=== PATIENT | male | born 1950 | race Caucasian/White ===

== ENCOUNTER 2020-04-03 08:39 | Outpatient (CLI) | payer MEDICARE, BC, SELFPAY ==
--- NOTE | 2020-04-03 09:18 | MR_ITS ---
WS: [id number] MRI LUMBAR SPINE NONCONTRAST HISTORY: LUMBAR RADICULOPATHY COMPARISON: None available. TECHNIQUE: Sagittal and axial multisequence imaging is submitted. Extensive prior cervical fusion hardware. Mild straightening of the normal thoracic kyphosis. No cord encroachment. Mild central canal stenosis at T11-12 due to disc osteophyte disease and facet arthrit is. Moderate straightening of the normal lumbar lordosis. Posterior alignment is normal. Mild to moderate disc space narrowing and desiccation throughout the lumbar spine with osteophytes at all levels. No acute fracture. There is a small amount of reactive edema in the endplates of T11, T12, L2 and L3. Conus terminates normally at T12-L1 level. L1-L2: Mild facet disease and disc disease. No stenosis. L2-L3: Moderate annular disc bulging and osteophytic ridging with mild facet disease. Mild encroachme nt upon the ventral thecal sac. There is very mild central and subarticular recess narrowing. Shallow central disc protrusion with annular fissure. L3-L4: Diffuse annular disc bulging and osteophytic ridging. Mild facet joint arthritis. Mild ligamen rachel flavum hypertrophy. Mild encroachment and narrowing of the central canal with moderate subarticul ar recess stenosis and mild bilateral foraminal stenosis. L4-L5: Diffuse annular disc bulging and osteophytic ridging. Moderate to severe facet joint arthritis bilaterally. Mild ligamentum flavum hypertrophy. Nerve roots are becoming slightly clumped within th e thecal sac. Disc osteophyte disease causing mild bilateral subarticular recess stenosis and foramin al stenosis. L5-S1: Mild annular disc bulging with a moderate RIGHT subarticular recess disc osteophyte complex wi th extension into the RIGHT foramen. Mild contact on the RIGHT S1 nerve root and L5 nerve root. Moder ate subarticular recess encroachment on the RIGHT and mild RIGHT foraminal stenosis. Increased retroperitoneal fat deposition. MR/MR lumbar spine wo con* 85029 IMPRESSION: 1. Multilevel mild to moderate disc disease and osteophytosis throughout the l umbar spine. 2. Moderate RIGHT subarticular recess and mild RIGHT foraminal stenosis at L5- S1 due to disc osteophyte disease. Disc protrusion contacts the RIGHT S1 nerve root in the subarticular recess. 3. Mild central and subarticular recess stenosis at L2-3. 4. Mild central canal stenosis with moderate subarticular recess stenosis at L 3-4. Mild bilateral foraminal and subarticular recess stenosis at L4-5.
== END 2020-04-03 08:40 | disposition home or self-care (01) ==
LOC: RADWPI 08:42
PROVIDERS: Family Provider Physician Assistant; PCP Physician Assistant; Visit Provider Physician Assistant
DX: M54.16 Radiculopathy, lumbar region (principal); M51.36 Other intervertebral disc degeneration, lumbar region; M48.07 Spinal stenosis, lumbosacral region
CPT/HCPCS: 72148

== ENCOUNTER → 2020-09-18 15:50 | Outpatient (BNVA) | payer MEDICARE, BC, SELFPAY | PROVIDERS: Family Provider Physician Assistant; PCP Physician Assistant; Visit Provider Surgery | DX: Z11.59 Encounter for screening for other viral diseases (principal); K64.9 Unspecified hemorrhoids | CPT/HCPCS: 87635 ==

== ENCOUNTER 2020-09-23 05:52 | Day surgery (SDC) | payer MEDICARE, BC, SELFPAY ==
[2020-09-22 13:44] VITALS: BMI 28.2
[2020-09-23] VITALS (8 sets, daily range): BP systolic 142–176; BP diastolic 76–112; PULSE 94–109; RESP 16–18; TEMP 36.3–37; O2SAT 92–98
--- NOTE | 2020-09-23 06:55 | ANES.PREANE2 ---
Pre-Anesthetic Assessment Pre-Anesthetic Assessment: Height/Weight: Height 1.88 m Weight 99.79 kg Preop Diagnosis: Hemorrhoids Proposed Procedure: Operation Date: 09/23/20 07:00 Proposed Procedures p open Hemorroidectomy 58063 K64.9(Not Applicable) - Logan Jones MD Was Beta Rhett taken within 24 hours: N/A Last intake: Intake Last Liquid Date 09/23/20 Last Liquid Time 05:00 Last Solid Date 09/22/20 Last Solid Time 20:00 Social: Social History: Alcohol and Tobacco Exam: Pre-Anes Outpt Exam: alert, oriented x 3, clear to auscultation bilaterally and regular rate & rhythm Airway: Submandibular: WNL Cervical ROM: WNL MP: 2 Dentition: Partials History/ROS: No significant complaints Pulmonary: Pulmonary: COPD CV/HEM: CV/HEM: None reported : : None reported Hepatic: Hepatic: None reported GI: GI: None reported Metabolic: Metabolic: None reported Musc/skel: Musc/skel: None reported Neuropsych: Neuropsych: None reported Anesthetic Plan: ASA status: 3 Anesthesia: General PFSH Anesthesia PFSH: Medical History (Updated 09/15/20 @ 16:20 by Logan Jones MD) BPH (benign prostatic hyperplasia) Depression Erectile dysfunction GERD (gastroesophageal reflux disease) Hemorrhoids Surgical History History of colonoscopy (~2015) History of fusion of cervical spine c3-c7 History of laparoscopic cholecystectomy History of repair of right rotator cuff Family History Denies family history of Anesthesia complication Bleeding disorder Social History Smoking and tobacco status: current every day smoker Second hand smoke exposure: Yes Alcohol intake: current Data Anesthesia Cardiac Studies: No Data to Display
--- NOTE | 2020-09-23 06:58 | W.PM.OPSUD ---
Surgery/Procedure H&P Update DATE OF PROCEDURE: September 23, 2020 DATE H&P PERFORMED: 09/15/20 H&P UPDATE INFORMATION: I have reviewed H&P completed within last 30 days, I have examined patient prior to procedure and No changes to prior documentation PREOP DIAGNOSIS: Hemorrhoids PLANNED PROCEDURE: Operation Date: 09/23/20 07:00 Proposed Procedures p open Hemorroidectomy 07400 K64.9(Not Applicable) - Logan Jones MD
[2020-09-23] MEDS: sodium chloride 0.9% 1,000 ML 30 ML IV (07:05)
--- NOTE | 2020-09-23 08:08 | PM.OP ---
Operative Report Date of procedure: September 23, 2020 Pre-op Diagnosis: Hemorrhoids Post-op diagnosis: same Post-op Diagnosis: Grade 4 hemorrhoid at 3:00 and 7 o'clock position Grade 2 hemorrhoid at 11 o'clock position Procedure Done: Hemorrhoidectomy x2 Banding of hemorrhoids x1 Specimens removed/disposition: Hemorrhoidal tissue Surgeon: Logan Jones Anesthesia: General Condition: stable Disposition: PACU Procedure: The patient was taken to the operating room, intubated under general anesthesia and placed in the jackknife prone position under general anesthesia after IV antibiotic had been administered. The perianal area was prepped and draped in a sterile manner. Examination under anesthesia revealed grade 4 internal hemorrhoids in the right lateral and left lateral location. There was grade 2 hemorrhoids noted in the right anterior location. The hemorrhoidal tissue on the left lateral location was grasped with Allis clamps, and using LigaSure the hemorrhoidal tissue was excised staying superficial to the sphincter muscle up to a point superior to the dentate line. The hemorrhoidal tissue on the right lateral location was grasped with Allis clamps, and using LigaSure the hemorrhoidal tissue was excised staying superficial to the sphincter muscle up to a point superior to the dentate line. There was no bleeding noted. Rubber band was applied to the grade 2 hemorrhoids in the right anterior location about the dentate line using a band applicator. The excised specimens were sent to pathology. 10 cc of saline mixed with 10 cc point Exparel mixed with 10 cc of 0.5% Marcaine was infiltrated for a perianal block. A Vaseline gauze was placed in the anal canal and the patient was transferred to recovery room in stable condition.
[2020-09-23] MEDS: HYDROcodone-acetaminophen 5-325 mg Tablet 1 TAB PO (08:35)
--- NOTE | 2020-09-23 08:43 | ANE.PACU2 ---
Inpatient post-anesthesia follow up: Airway intact: Yes Vital signs: Temperature 97.8 F Pulse Rate 98 Respiratory Rate 16 Blood Pressure 157/92 Pulse Oximetry 93 Oxygen Delivery Me thod Room Air Oxygen Flow Rate 8 Fraction of Inspir ed Oxygen Hydration adequate: Yes Nausea and vomiting: No Pain level: 3 Mental status: Baseline
== END 2020-09-23 10:20 | disposition home or self-care (01) ==
PROVIDERS: PCP Physician Assistant; Visit Provider Surgery
PROC: (CPT 46260; principal; 2020-09-23 07:00)
DX: K64.8 Other hemorrhoids (principal); K64.4 Residual hemorrhoidal skin tags; J44.9 Chronic obstructive pulmonary disease, unspecified; N40.0 Benign prostatic hyperplasia without lower urinary tract symptoms; F32.9 Major depressive disorder, single episode, unspecified; K21.9 Gastro-esophageal reflux disease without esophagitis; F17.210 Nicotine dependence, cigarettes, uncomplicated
CPT/HCPCS: 46260; 12345; 88304; C9290; J0690; J1100; J2704; J3010; J3490; J7030

== ENCOUNTER 2020-11-09 11:46 | Outpatient (CLI) | payer MEDICARE, BC, SELFPAY | END 2020-11-09 11:47 | disposition home or self-care (01) | LOC: LAB 11:52 | PROVIDERS: PCP Physician Assistant; Visit Provider Surgery | DX: R19.7 Diarrhea, unspecified (principal) | CPT/HCPCS: 83630; 87046; 87177; 87209; 87493 ==

== ENCOUNTER 2021-02-18 16:04 | Emergency (ER) | payer MEDICARE, BC, SELFPAY ==
[2021-02-18 16:32] VITALS: BP 123/73; PULSE 75; RESP 18; TEMP 36.8; O2SAT 96; BMI 29.5
--- NOTE | 2021-02-18 16:56 | PC.NURSE ---
patient c/o RUQ pain, worse when taking deep breath or touching.
--- NOTE | 2021-02-18 16:58 | CTR_ITS ---
PROCEDURE INFORMATION: Exam: CT Chest With Contrast; Diagnostic Exam date and time: 02/18/2021 6:32 PM Age: 70 years old Clinical indication: Injury or trauma; Fall; Upper; Blunt trauma (contusions or hematomas); Prior surgery; Surgery type: Neck, gb; Additional info: Fell on table corner to left upper belly/lower ribs TECHNIQUE: Imaging protocol: Diagnostic computed tomography of the chest with contrast. Radiation optimization: All CT scans at this facility use at least one of these dose optimization techniques: automated exposure control; mA and/or kV adjustment per patient size (includes targeted exams where dose is matched to clinical indication); or iterative reconstruction. Contrast material: OMNI 300; Contrast volume: 95 ml; Contrast route: INTRAVENOUS (IV); COMPARISON: No relevant prior studies available. RADIATION DOSE METRICS: Total DLP (mGy-cm): 1765.91 FINDINGS: Lungs: A small amount septal thickening and early peripheral cystic change. Few 1-3 mm nodules. No focal consolidation. Pleural spaces: Unremarkable. No pneumothorax. No pleural effusion. Heart: Unremarkable. No cardiomegaly. No pericardial effusion. Aorta: Unremarkable. No aortic aneurysm. Lymph nodes: Unremarkable. No enlarged lymph nodes. Bones/joints: Unremarkable. No acute fracture. Soft tissues: Unremarkable. IMPRESSION: 1. No acute abnormalities. 2. Mild lung fibrosis. PROCEDURE INFORMATION: Exam: CT Abdomen And Pelvis With Contrast Exam date and time: 02/18/2021 6:32 PM Age: 70 years old Clinical indication: Injury or trauma; Fall; Upper; Blunt trauma (contusions or hematomas); Prior surgery; Surgery type: Neck, gb; Additional info: Fell on table corner to left upper belly/lower ribs TECHNIQUE: Imaging protocol: Computed tomography of the abdomen and pelvis with contrast. Radiation optimization: All CT scans at this facility use at least one of these dose optimization techniques: automated exposure control; mA and/or kV adjustment per patient size (includes targeted exams where dose is matched to clinical indication); or iterative reconstruction. Contrast material: OMNI 300; Contrast volume: 95 ml; Contrast route: INTRAVENOUS (IV); COMPARISON: No relevant prior studies available. RADIATION DOSE METRICS: Total DLP (mGy-cm): 1765.91 FINDINGS: Lungs: The visualized lung bases are clear. Liver: Normal size and density. No focal mass. Gallbladder and bile ducts: Status post cholecystectomy. Mild biliary dilatation is likely reservoir effect. Pancreas: No evidence of mass. No ductal dilation. Spleen: No splenomegaly or mass. Adrenal glands: Normal. Kidneys and ureters: Bilateral subcentimeter renal cyst not require further imaging. No stones or hydronephrosis. Mild bilateral perinephric edema is likely age related. Normal appearing ureters. Stomach and bowel: No evidence of obstruction. No focal bowel wall thickening or mass. No significant diverticula. Appendix: No evidence of appendicitis. Intraperitoneal space: No free air. No free fluid or evidence of abscess. Vasculature: No concerning abnormalities. Scattered vascular calcifications. Lymph nodes: No lymphadenopathy. Urinary bladder: Normal CT appearance. Reproductive: Normal CT appearance for age. Bones/joints: No acute abnormality. Degenerative changes of the spine and hips. The bones appear mildly demineralized. Soft tissues: Within normal limits. CT/CT chest abd pel w con* IMPRESSION: No acute abnormalities. COMMENTS: Consistent with the [employer]'s Incidental Findings Committee white paper (J Am To Radiol 2018): Any incidental renal lesion less than 1 cm or classified as too small to characterize, or any incidental cystic renal lesion characterized as simple-appearing, is likely benign. No follow-up imaging is recommended for these lesions per consensus recommendations based on imaging criteria. Radiation Dose CTDIVOL = (mGy): DLP = 1765.91~1765.91 (mGy-cm)
--- NOTE | 2021-02-18 17:04 | ECG_ITS ---
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 Measurements Intervals [place] Rate: 68 P: 50 DE: 157 QRS: -26 QRSD: 109 T: 34 QT: 421 QTc: 448 Interpretive Statements SINUS RHYTHM BORDERLINE LEFT AXIS DEVIATION [QRS AXIS < -20] No previous ECG available for comparison Electronically Signed On 02-18-2021 21:02:16 CDT by Shelia Melendez M.D. [id number]
--- NOTE | 2021-02-18 17:09 | W.ED.FALL ---
HPI - Fall General: Chief Complaint: Fall Stated Complaint: Post Fall/ ABD pain Time Seen by Provider: 02/18/21 16:52 History of Present Illness: HPI Narrative: The patient is a 70-year-old male previously well who comes to the ER 4 days after falling. He says he was wearing sandals and caught a tuft of a rug causing him to fall. He fell on a coffee table where the corner of it hit him squarely in the right upper quadrant and he has had pain since. He says the pain is getting no better so he comes to the ER. He says it hurts when he breathes or palpates the area and worries that he could have injured his spleen, ribs, or what ever else is in that area but because it is all tender. He has taken NSAIDs for pain with limited relief. complaint: fall Onset (ago): day(s) (4) Fall from: standing Fall witnessed: no Place fall occurred: home Loss of consciousness: None Prolonged down time: no Symptoms prior to fall: none Context: tripped/slipped Severity: moderate Associated symptoms-after fall: Reports abdominal pain; Denies confusion, difficulty walking, headache(s) or neck pain Review of Systems General: Reports: 10 or more systems reviewed and unremarkable except in HPI and below Const: Denies: fatigue Eyes: Denies: change in vision, blurry vision or eye redness ENMT: Denies: throat pain, swelling of lips/tongue, ear or mastoid pain or nasal congestion Resp: Denies: dyspnea, productive cough or non-productive cough GI: Reports: abdominal pain; Denies: nausea or vomiting : Denies: flank pain, urinary frequency or urinary urgency Musc: Denies: neck pain, back pain, extremity pain, joint pain, joint redness, limited range of motion or muscle weakness Skin/Breast: Denies: rash, pruritus, erythema, skin pain or skin tenderness Neuro: Denies: headache(s), numbness in extremities, weakness in extremities, sensory changes, difficulty walking, dizziness, confusion or Slurred speech present Psych: Denies: anxiety or depression Endo: Denies: polyuria All/Imm: Denies: urticaria, throat swelling or tongue swelling PFSH ED PFSH: Medical History BPH (benign prostatic hyperplasia) Depression Erectile dysfunction GERD (gastroesophageal reflux disease) Hemorrhoids Surgical History History of colonoscopy (~2015) History of fusion of cervical spine c3-c7 History of laparoscopic cholecystectomy History of repair of right rotator cuff S/P hemorrhoidectomy (09/23/20) Family History Denies family history of Anesthesia complication Bleeding disorder Social History Smoking and tobacco status: current every day smoker Second hand smoke exposure: Yes Alcohol intake: current Physical Exam Const: COMMON NORMALS: no acute distress, average body habitus, patient oriented x3, no limitations, healthy appearing, alert and well nourished GENERAL APPEARANCE: cooperative, comfortable, well kempt and well developed ORIENTATION/CONSCIOUSNESS: Yes awake, Yes oriented to person, Yes oriented to place and Yes oriented to time HENMT: COMMON NORMALS: normocephalic, external ears normal and Normal external nose present HEAD & SCALP: normal to inspection and normocephalic NOSE: Normal external nose present EXTERNAL EAR: Yes external ears normal MOUTH: Normal oral and palatal mucosa present THROAT: posterior oropharynx normal Eye: COMMON NORMALS: Equal, round and reactive pupils present and EOMs intact bilaterally GENERAL EYE: appearance normal, both eyes and all related structures PUPIL: Yes Equal, round and reactive pupils present Neck/C-Spine: COMMON NORMALS: full ROM, no lymphadenopathy, no meningeal signs and no JVD GENERAL: Yes normal visual inspection Lymph: LYMPHATIC: no lymphadenopathy noted Chest: COMMONS NORMALS: normal inspection of the chest and normal palpation of entire chest wall Resp: COMMON NORMALS: normal respiratory effort, No retractions, No use of accessory muscles, clear to auscultation bilaterally and percussion normal EFFORT & INSPECTION: Yes able to speak in complete sentences AUSCULTATION: clear to auscultation bilaterally PERCUSSION: percussion normal Cardio: COMMON NORMALS: no JVD, regular rate, regular rhythm, S1 normal heart sound present, S2 normal heart sound present and Peripheral pulses 2+ throughout RATE: regular rate RHYTHM: regular rhythm HEART SOUNDS: S1 normal heart sound present and S2 normal heart sound present PERIPHERAL PULSES: Peripheral pulses 2+ throughout GI: COMMON NORMALS: Normal to inspection, nondistended, normoactive bowel sounds present, Soft to palpation and no masses INSPECTION: Yes normal to inspection PALPATION: Yes Soft to palpation GI image (male): 1. Moderate tenderness to the area drawn. No bruising. Soft. No rebound tenderness. : COMMON NORMALS: Yes no CVA tenderness BLADDER/KIDNEY EXAM: Yes no CVA tenderness Back/Pelvis: COMMON NORMALS: no CVA tenderness, thoracic and lumbar spine normal to inspection, no thoracic nor lumbar tenderness and thoraco-lumbar ROM normal Extremity: COMMON NORMALS: normal to inspection, full ROM, capillary refill normal, no joint enlargement and no pedal edema GENERAL: Yes normal exam except as noted Neuro: COMMON NORMALS: patient oriented x3, CN's II-XII intact bilaterally, moves all extremities, no focal motor deficits, no sensory deficits noted and gait normal SENSORIUM/ORIENTATION: Yes alert, Yes oriented to person, Yes oriented to place and Yes oriented to time MENINGEAL SIGNS: Yes no meningeal signs Psych: COMMON NORMALS: mental status grossly normal, Normal thought process present, cooperative, normal affect and speech normal APPEARANCE: Yes well kempt ATTITUDE: Yes calm SPEECH: Yes normal speech THOUGHT PROCESS: Normal thought process present Skin: COMMON NORMALS: no rashes or lesions noted GENERAL SKIN EXAM: no rashes or lesions noted Course Vital Signs: Vital signs: Vital Signs Temperature 98.2 F 02/18/21 16:32 Pulse Rate 92 02/18/21 19:18 Respiratory Rate 22 H 02/18/21 19:18 Blood Pressure 127/69 02/18/21 19:18 Pulse Oximetry 98 02/18/21 19:18 MDM - Fall MDM Narrative: Medical decision making narrative: The patient comes in 4 days after a fall. CT shows no significant internal organ damage. Liver enzymes are mildly elevated and bilirubin mildly elevated as well. Recommended he get a CMP again in a week from his primary care physician after he feels better. ER with worsening symptoms at any time. Discharged with Flexeril and recommend he be careful to avoid future falls with that medication. Lab Data: Labs: Lab Results 02/18/21 02/18/21 02/18/21 Range/Units 17:35 17:35 17:35 WBC 8.0 (4.0-10.0) 10^3/ uL RBC 4.63 (4.1-5.3) 10^6/u L Hgb 14.9 (11.7-16.6) g/dL Hct 43.9 (42.0-52.0) % MCV 94.8 H (80-94) fL MCH 32.2 (28.0-34.0) pg MCHC 33.9 (30.0-36.0) g/dL RDW 12.9 (12.1-15.1) % Plt Count 162 (130-400) 10^3/c mm MPV 9.9 (7.4-10.4) fL Neut % (Auto) 67.3 % Lymph % (Auto) 23.3 % [place] % (Auto) 7.9 % Eos % (Auto) 0.8 % Baso % (Auto) 0.3 % Neut # (Auto) 5.36 (1.8-7.7) 10^3/u L Lymph # (Auto) 1.9 (0.8-4.8) 10^3/u L [place] # (Auto) 0.6 (0.2-0.9) 10^3/u L Eos # (Auto) 0.1 (0.0-0.8) 10^3/u L Baso # (Auto) 0.0 (0.0-0.1) 10^3/u L Nucleated RBC % (a uto) 0 % Nucleated RBCs # 0.0 /100WBC Sodium 135 L (136-145) mmol/L Potassium 3.9 (3.5-5.1) mmol/L Chloride 97 L (98-107) mmol/L Carbon Dioxide 30 H (22-29) mmol/L Anion Gap 11.9 (5-19) BUN 10 (8-23) mg/dL Creatinine 0.7 (0.7-1.2) mg/dL GFR Calculation 111.5 (90-130) mL/min Glucose 85 (65-115) mg/dL Calculated Osmolal ity 278 L (285-295) mOsm/k g Calcium 8.7 (8.5-10.5) mg/dL Total Bilirubin 1.9 H (0.15-1.2) mg/dL AST 279 H (0-40) U/L ALT 198 H (0-41) U/L Alkaline Phosphata se 115 (40-130) IU/L Troponin T Baselin e 9 (0-15) ng/L Total Protein 6.2 L (6.6-8.7) g/dL Albumin 3.3 L (3.5-5.2) g/dL Globulin 2.9 (1.3-4.6) g/dL Lipase 14 (13-60) U/L Discharge Plan Discharge Patient Disposition: Home Clinical Impression: Contusion Condition: Stable Prescriptions: New cyclobenzaprine 5 mg tablet 5 mg PO TID PRN (Reason: muscle spasm) Qty: 15 RF: 0 No Action esomeprazole magnesium 40 mg capsule,delayed release(DR/EC) 40 mg PO DAILY RF: 0 Metamucil (sugar) Powder 1 tbsp PO BID Qty: 1254 RF: 2 atorvastatin 40 mg tablet 40 mg PO DAILY RF: 0 doxycycline hyclate 100 mg capsule 100 mg PO DAILY RF: 0 sildenafil 100 mg tablet 100 mg PO DAILY PRN (Reason: Sexual Activity) RF: 0 trazodone 100 mg tablet 100 mg PO BEDTIME RF: 0 paroxetine HCl 30 mg tablet 30 mg PO DAILY RF: 0 buspirone 15 mg tablet 15 mg PO BID RF: 0 acamprosate 333 mg tablet,delayed release (DR/EC) 666 mg PO TID RF: 0 lactulose 10 gram/15 mL solution 15 ml PO BID PRN (Reason: Constipation) RF: 0 Discharge Orders: Discharge ED (Routine); Ordered 02/18/21 Ordered By: Gama Arias Referrals: Belgica Beyer DO [Primary Care Provider] - Patient Instructions: Contusion, Opioid Safety Activity Restrictions/Additional Instructions: You have fallen and likely have a deep bruise called a contusion. There are no broken bones and your major organs do not have any significant injuries seen on CT. Of note your liver enzymes are slightly elevated which could be an indication that there was a mild injury there however it is unclear. It is recommended that you have your liver enzymes checked again when you feel better. I am sending you home with a muscle relaxer to help with your aches and it will also help you sleep at night. Please be aware that while taking this medication you may become drowsy and it increases chance of falling so try to avoid falling. Do not mix it with drugs, alcohol, nor operate machinery while you take the medication either. Coding Level of Care Code ED Assistant Farm Operations Manager for g Fwd Exam Comprehensive
[2021-02-18 17:25] VITALS: BP 126/63; PULSE 68; RESP 18; O2SAT 96
[2021-02-18 17:57] LABS: Basophils % 0.3 %; Eosinophils # 0.1 10^3/uL (0.0-0.8); Eosinophils % 0.8 %; Hematocrit 43.9 % (42.0-52.0); Hemoglobin 14.9 g/dL (11.7-16.6); Lymphocytes # 1.9 10^3/uL (0.8-4.8); Lymphocytes % 23.3 %; Mean Corpuscular HGB Conc 33.9 g/dL (30.0-36.0); Mean Corpuscular Hemoglobin 32.2 pg (28.0-34.0); Mean Corpuscular Volume 94.8 fL (80-94); Mean Platelet Volume 9.9 fL (7.4-10.4); Monocytes # 0.6 10^3/uL (0.2-0.9); Monocytes % 7.9 %; Neutrophils # 5.36 10^3/uL (1.8-7.7); Neutrophils % 67.3 %; Nucleated Red Blood Cells % 0 %; Platelet Count 162 10^3/cmm (130-400); Red Blood Count 4.63 10^6/uL (4.1-5.3); Red Cell Distribution Width 12.9 % (12.1-15.1)
[2021-02-18 18:15] LABS: Alanine Aminotransferase 198 U/L (0-41); Albumin Level 3.3 g/dL (3.5-5.2); Alkaline Phosphatase 115 IU/L (40-130); Anion Gap 11.9 (5-19); Aspartate Amino Transferase 279 U/L (0-40); Blood Urea Nitrogen 10 mg/dL (8-23); Calcium 8.7 mg/dL (8.5-10.5); Carbon Dioxide 30 mmol/L (22-29); Chloride 97 mmol/L (98-107); Globulin 2.9 g/dL (1.3-4.6); Glomerular Filtration Rate 111.5 mL/min (90-130); Glucose 85 mg/dL (65-115); Lipase 14 U/L (13-60); Osmolality Calculated 278 mOsm/kg (285-295); Potassium 3.9 mmol/L (3.5-5.1); Sodium 135 mmol/L (136-145); Total Bilirubin 1.9 mg/dL (0.15-1.2); Total Protein 6.2 g/dL (6.6-8.7)
[2021-02-18 18:16] LABS: Troponin(5th) Baseline 9 ng/L (0-15)
[2021-02-18] MEDS: iohexol 300 mg/mL 100 mL Btl IV (18:46)
[2021-02-18 19:18] VITALS: BP 127/69; PULSE 92; RESP 22; O2SAT 98
--- NOTE | 2021-02-18 19:53 | PC.NURSE ---
morphine not given due to pt driving home. flexeril rx for home adm
--- NOTE | 2021-02-18 20:01 | PC.NURSE ---
original order for flexeril 5mg PO for home adm cancelled due to only 10mg available to dispense per Jared @pharmacy. Dr notified, order changed to flexeril 10mg PO for home adm
[2021-02-18 21:03] VITALS: BP 127/69; O2SAT 97
== END 2021-02-18 20:20 | disposition home or self-care (01) ==
PROVIDERS: Emergency Provider Family Medicine; PCP Internal Medicine
DX: S30.1XXA Contusion of abdominal wall, initial encounter (principal); F17.210 Nicotine dependence, cigarettes, uncomplicated; W01.0XXA Fall on same level from slipping, tripping and stumbling without subsequent striking against object, initial encounter
CPT/HCPCS: 71260; 74177; 80053; 83690; 84484; 85025; 93005; 99283; Q9967

== ENCOUNTER 2021-03-05 11:24 | Outpatient (CLI) | payer MEDICARE, BC, SELFPAY ==
--- NOTE | 2021-03-05 11:38 | XR_ITS ---
WS: [id number] Chest 2 views, 03/05/2021 Clinical Data: LEFT SIDED RIB PAIN Comparison: None. Findings: No nodules, masses or effusions are seen. The heart is normal. The pulmonary vascularity is not increased. No pneumothorax is seen. The aortic arch and descending aorta show minimal calcifica tion and tortuosity. There is patchy opacities in the periphery of the right lower lobe, right upper lobe and left lower lobe which could represent acute or chronic change. These opacities could be mini mal acute pneumonia or chronic interstitial pneumonia. The patient has had an anterior cervical disc fusion. XR/XR chest 2V* 77936 Impression: 1. Atherosclerosis. 2. Minimal peripheral pulmonary opacities in the right upper lobe, right lower lobe and left lower lobe which could represent acute or chronic pneumonia.
--- NOTE | 2021-03-05 11:38 | XR_ITS ---
WS: [id number] Left rib detail, 2 views, 03/05/2021 Clinical Data: LEFT SIDED RIB PAIN Comparison: None. Findings: There is a fracture of the lateral aspect of the left seventh rib. No left pneumothorax or subcutaneo us emphysema is seen. The peripheral interstitial lung opacities are noted, these could represent chr onic interstitial pneumonia or less likely acute pneumonia. XR/XR ribs LT 2V* [id number] Impression: Left seventh rib fracture.
== END 2021-03-05 11:25 | disposition home or self-care (01) ==
LOC: RAD 11:30
PROVIDERS: PCP Internal Medicine; Visit Provider Family Medicine
DX: S22.32XA Fracture of one rib, left side, initial encounter for closed fracture (principal); X58.XXXA Exposure to other specified factors, initial encounter; I70.90 Unspecified atherosclerosis
CPT/HCPCS: 71046; 71100

== ENCOUNTER 2021-06-18 13:51 | Emergency (ER) | payer MEDICARE, BC, SELFPAY ==
--- NOTE | 2021-06-18 14:11 | ECG_ITS ---
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 Measurements Intervals [place] Rate: 79 P: 42 ND: 136 QRS: -34 QRSD: 110 T: 49 QT: 396 QTc: 456 Interpretive Statements SINUS RHYTHM MARKED LEFT AXIS DEVIATION [QRS AXIS < -30] Compared to ECG 02/18/2021 17:25:16 No significant changes Electronically Signed On 06-20-2021 12:20:40 CDT by Schuyler Johnson M.D. [id number]
[2021-06-18 14:12] VITALS: BP 124/74; PULSE 80; RESP 18; TEMP 37.2; O2SAT 95; BMI 27.6
== END 2021-06-18 20:08 | disposition left against medical advice (07) ==
PROVIDERS: PCP Family Medicine
DX: Z53.21 Procedure and treatment not carried out due to patient leaving prior to being seen by health care provider (principal)
CPT/HCPCS: 93005

== ENCOUNTER 2021-06-21 08:55 | Emergency (ER) | payer MEDICARE, BC, SELFPAY ==
--- NOTE | 2021-06-21 09:01 | XRR_ITS ---
PROCEDURE INFORMATION: Exam: XR Chest Exam date and time: 06/21/2021 9:01 AM Age: 70 years old Clinical indication: Pain; Angina pectoris; Additional info: Chest pain x 1 month TECHNIQUE: Imaging protocol: XR of the chest. Views: Frontal portable upright view of the chest. COMPARISON: CR XR chest 2V* [id number] 03/05/2021 11:50 AM FINDINGS: Lungs: Interval mild increase in bilateral interstitial prominence, notably the lateral left mid lung zone and right lung base. The pulmonary vasculature is stable. Pleural spaces: No pleural effusion. No pneumothorax. Heart/Mediastinum: Mediastinum: Stable. The heart is normal in size and contour. Mediastinum: Stable. Vasculature: Mild aortic arch atherosclerotic calcification without ectasia. Bones/joints: Lower cervical spinal anterior fixation hardware. Stable. Stable. XR/XR chest 1V portable [id number] IMPRESSION: Interval mild increase in bilateral interstitial prominence. Consider interstitial pulmonary edema and infectious interstitial pneumonitis.
[2021-06-21 09:02] VITALS: BP 130/78; PULSE 111; RESP 17; TEMP 37.4; O2SAT 95
[2021-06-21 09:46] VITALS: BP 139/87; PULSE 85; RESP 16; O2SAT 97
[2021-06-21 09:49] LABS: Basophils % 0.4 %; Eosinophils # 0.1 10^3/uL (0.0-0.8); Eosinophils % 1.5 %; Hematocrit 45.3 % (42.0-52.0); Hemoglobin 15.4 g/dL (11.7-16.6); Lymphocytes # 0.8 10^3/uL (0.8-4.8); Lymphocytes % 14.5 %; Mean Corpuscular Hemoglobin 34.9 pg (28.0-34.0); Mean Corpuscular Volume 102.7 fL (80-94); Mean Platelet Volume 9.3 fL (7.4-10.4); Monocytes # 0.5 10^3/uL (0.2-0.9); Monocytes % 8.8 %; Neutrophils % 74.4 %; Nucleated Red Blood Cells % 0 %; Platelet Count 172 10^3/cmm (130-400); Red Blood Count 4.41 10^6/uL (4.1-5.3); Red Cell Distribution Width 12.3 % (12.1-15.1); White Blood Count 5.2 10^3/uL (4.0-10.0)
--- NOTE | 2021-06-21 09:50 | W.ED.CHESTPA ---
HPI - Chest Pain General: Chief Complaint: Chest Pain Stated Complaint: CHEST PAIN Time Seen by Provider: 06/21/21 08:55 History of Present Illness: HPI narrative: 70-year-old male who presents to the emergency room with complaining of chest pain on the left side for the last month. He was here a few days ago and left because of volumes the weight was longer and he did not wish to wait to be seen. He denies any radiation of the pain is not particularly been associated with shortness of breath he does have his long history of smoking and still does smoke. He has not had any fever sweats chills or cough. He is not had any nausea diaphoresis associated with this he is not been more short of breath than usual. He is not had any vomiting myalgia or diarrhea. He has previously been vaccinated for Covid and he is not had a yet that he is aware of. Chest pain is oddly positional if he flexes his neck and is sitting up and then takes a deep breath he can recreate the pain with palpation on the left side of the sternum at the base. Otherwise it is not palpably reproducible or reproducible on inspiration when he is in a different position. He has no known history of coronary artery disease. MD complaint: chest pain and chest discomfort Onset (ago): month(s) (1) Timing of current episode: episodic Prior episodes: Yes Onset: during rest Pain location: left chest Pain radiation: none Severity: mild Quality: aching Relieving factors: rest and other (He reports mild relief if he dissolves aspirin water and drinks it) Exacerbating factors: inspiration and palpation Associated symptoms: Deny abdominal pain, diaphoresis, dyspnea, fever(s), leg edema, nausea, palpitations, sense of impending doom, syncope or vomiting Treatment prior to arrival: none Review of Systems Const: Denies: fever(s) or diaphoresis ENMT: Denies: throat pain, ear or mastoid pain, nasal discharge or nasal congestion Card: Denies: palpitations or syncope Resp: Denies: dyspnea GI: Denies: abdominal pain, nausea or vomiting : Denies: flank pain, dysuria, urinary frequency or urinary urgency Skin/Breast: Denies: rash or pruritus PFS ED PFSH: Medical History BPH (benign prostatic hyperplasia) Depression Erectile dysfunction GERD (gastroesophageal reflux disease) Hemorrhoids Surgical History History of colonoscopy (~2015) History of fusion of cervical spine c3-c7 History of laparoscopic cholecystectomy History of repair of right rotator cuff S/P hemorrhoidectomy (09/23/20) Family History Denies family history of Anesthesia complication Bleeding disorder Social History Smoking and tobacco status: current every day smoker Second hand smoke exposure: Yes Alcohol intake: current Physical Exam Const: COMMON NORMALS: no acute distress GENERAL APPEARANCE: cooperative and comfortable ORIENTATION/CONSCIOUSNESS: Yes awake, Yes oriented to person, Yes oriented to place and Yes oriented to time HENMT: COMMON NORMALS: normocephalic, atraumatic, hearing grossly normal bilaterally, external ears normal, EAC's normal, TM's normal bilaterally, Normal nasal mucous membranes and turbinates present, moist oral mucous membranes and oropharynx normal HEAD & SCALP: normocephalic and atraumatic NOSE: Normal nasal mucous membranes and turbinates present EXTERNAL EAR: Yes external ears normal EXTERNAL AUDITORY CANAL: EAC's normal TYMPANIC MEMBRANE: TM's normal bilaterally Eye: COMMON NORMALS: Equal, round and reactive pupils present, EOMs intact bilaterally, conjunctivae normal and no scleral icterus CONJUNCTIVA: Yes conjunctivae normal PUPIL: Yes Equal, round and reactive pupils present Neck/C-Spine: COMMON NORMALS: full ROM, no lymphadenopathy, supple and no JVD Lymph: LYMPHATIC: no lymphadenopathy noted and no lymphedema noted Resp: COMMON NORMALS: normal respiratory effort, No retractions, No use of accessory muscles and clear to auscultation bilaterally AUSCULTATION: clear to auscultation bilaterally Cardio: COMMON NORMALS: no JVD, regular rate, regular rhythm and No murmurs present (Cardio) RATE: regular rate RHYTHM: regular rhythm GI: COMMON NORMALS: Soft to palpation and No hepatosplenomegaly present AUSCULTATION: Yes normoactive bowel sounds PALPATION: Yes Soft to palpation, No Tenderness to palpation present (GI), No Guarding due to palpation present (GI) and Yes No hepatosplenomegaly present Extremity: COMMON NORMALS: normal to inspection, capillary refill normal, no clubbing, cyanosis or edema, no calf tenderness and no pedal edema Neuro: SENSORIUM/ORIENTATION: Yes oriented to person, Yes oriented to place and Yes oriented to time Skin: COMMON NORMALS: no rashes or lesions noted GENERAL SKIN EXAM: no rashes or lesions noted Course Vital Signs: Vital signs: Vital Signs Temperature 99.5 F 06/21/21 10:22 Pulse Rate 90 06/21/21 16:05 Respiratory Rate 18 06/21/21 16:05 Blood Pressure 130/74 06/21/21 16:05 Pulse Oximetry 93 06/21/21 16:05 MDM - Chest Pain MDM Narrative: Medical decision making narrative: Reviewed labs imaging finding as well as EKGs on the chart. Patient would prefer to go home at this point. It was a little bit of questionable findings on the lower portion of the chest x-ray was swabbed him for Covid rapid is negative.Discharge home from follow-up with his primary care direct vision worsening problems return to the emergency room continue his other medications for now. Especially the aspirin. Lab Data: Labs: Lab Results 06/21/21 06/21/21 06/21/21 Range/Units 09:40 09:40 09:40 WBC 5.2 (4.0-10.0) 10^3/ uL RBC 4.41 (4.1-5.3) 10^6/u L Hgb 15.4 (11.7-16.6) g/dL Hct 45.3 (42.0-52.0) % MCV 102.7 H (80-94) fL MCH 34.9 H (28.0-34.0) pg MCHC 34.0 (30.0-36.0) g/dL RDW 12.3 (12.1-15.1) % Plt Count 172 (130-400) 10^3/c mm MPV 9.3 (7.4-10.4) fL Neut % (Auto) 74.4 % Lymph % (Auto) 14.5 % Stewart % (Auto) 8.8 % Eos % (Auto) 1.5 % Baso % (Auto) 0.4 % Neut # (Auto) 3.90 (1.8-7.7) 10^3/u L Lymph # (Auto) 0.8 (0.8-4.8) 10^3/u L Stewart # (Auto) 0.5 (0.2-0.9) 10^3/u L Eos # (Auto) 0.1 (0.0-0.8) 10^3/u L Baso # (Auto) 0.0 (0.0-0.1) 10^3/u L Nucleated RBC % (a uto) 0 % Nucleated RBCs # 0.0 /100WBC Sodium 138 (136-145) mmol/L Potassium 4.1 (3.5-5.1) mmol/L Chloride 100 (98-107) mmol/L Carbon Dioxide 28 (22-29) mmol/L Anion Gap 14.1 (5-19) BUN 5 L (8-23) mg/dL Creatinine 0.5 L (0.7-1.2) mg/dL GFR Calculation 164.4 H (90-130) mL/min Glucose 86 (65-115) mg/dL Calculated Osmolal ity 283 L (285-295) mOsm/k g Calcium 8.5 (8.5-10.5) mg/dL Total Bilirubin 0.5 (0.15-1.2) mg/dL AST 32 (0-40) U/L ALT 17 (0-41) U/L Alkaline Phosphata se 101 (40-130) IU/L Troponin T Baselin e 7 (0-15) ng/L Troponin T 120 Min yohana (0-15) ng/L Delta Troponin T Total Protein 6.8 (6.6-8.7) g/dL Albumin 3.7 (3.5-5.2) g/dL Globulin 3.1 (1.3-4.6) g/dL Nasal/Oral COVID-1 9 PCR SARS-CoV-2 Ag (Rap id) (Negative) 06/21/21 06/21/21 06/21/21 Range/Units 11:20 11:20 13:56 WBC (4.0-10.0) 10^3/ uL RBC (4.1-5.3) 10^6/u L Hgb (11.7-16.6) g/dL Hct (42.0-52.0) % MCV (80-94) fL MCH (28.0-34.0) pg MCHC (30.0-36.0) g/dL RDW (12.1-15.1) % Plt Count (130-400) 10^3/c mm MPV (7.4-10.4) fL Neut % (Auto) % Lymph % (Auto) % Stewart % (Auto) % Eos % (Auto) % Baso % (Auto) % Neut # (Auto) (1.8-7.7) 10^3/u L Lymph # (Auto) (0.8-4.8) 10^3/u L Stewart # (Auto) (0.2-0.9) 10^3/u L Eos # (Auto) (0.0-0.8) 10^3/u L Baso # (Auto) (0.0-0.1) 10^3/u L Nucleated RBC % (a uto) % Nucleated RBCs # /100WBC Sodium (136-145) mmol/L Potassium (3.5-5.1) mmol/L Chloride (98-107) mmol/L Carbon Dioxide (22-29) mmol/L Anion Gap (5-19) BUN (8-23) mg/dL Creatinine (0.7-1.2) mg/dL GFR Calculation (90-130) mL/min Glucose (65-115) mg/dL Calculated Osmolal ity (285-295) mOsm/k g Calcium (8.5-10.5) mg/dL Total Bilirubin (0.15-1.2) mg/dL AST (0-40) U/L ALT (0-41) U/L Alkaline Phosphata se (40-130) IU/L Troponin T Baselin e (0-15) ng/L Troponin T 120 Min yohana 6.48 (0-15) ng/L Delta Troponin T TNP Total Protein (6.6-8.7) g/dL Albumin (3.5-5.2) g/dL Globulin (1.3-4.6) g/dL Nasal/Oral COVID-1 9 PCR Not detected SARS-CoV-2 Ag (Rap id) Negative (Negative) Discharge Plan Discharge Patient Disposition: Home Clinical Impression: Atypical chest pain Condition: Stable Prescriptions: No Action esomeprazole magnesium 40 mg capsule,delayed release(DR/EC) 40 mg PO QAM RF: 0 atorvastatin 40 mg tablet 40 mg PO DAILY RF: 0 sildenafil 100 mg tablet 100 mg PO BEDTIME PRN (Reason: Sexual Activity) RF: 0 trazodone 100 mg tablet 50 - 100 mg PO BEDTIME RF: 0 paroxetine HCl 30 mg tablet 30 mg PO BEDTIME RF: 0 buspirone 15 mg tablet 15 mg PO BID RF: 0 acamprosate 333 mg tablet,delayed release (DR/EC) 666 mg PO TID RF: 0 Aspir-81 81 mg Tablet,Delayed Release (Dr/Ec) 81 mg PO PRN RF: 0 Vitamin B-12 2 tab PO DAILY RF: 0 Discharge Orders: Discharge ED (Routine); Ordered 06/21/21 Ordered By: Wade Oliva Referrals: Andres Jenkins MD [Primary Care Provider] - Discharge Diet: Usual diet Discharge Activity: Increase activity as tolerated Patient Instructions: Opioid Safety Activity Restrictions/Additional Instructions: Your cardiac enzymes and EKGs were normal. Case management will call to arrange for a Lexiscan sestamibi stress test. Continue to take baby aspirin daily if you have any recurrence of symptoms return immediately to the emergency room Coding Level of Care Code ED Unemployment Claims Adjudicator for Chg Fwd Exam Comprehensive
[2021-06-21 10:13] LABS: Alanine Aminotransferase 17 U/L (0-41); Albumin Level 3.7 g/dL (3.5-5.2); Alkaline Phosphatase 101 IU/L (40-130); Anion Gap 14.1 (5-19); Aspartate Amino Transferase 32 U/L (0-40); Blood Urea Nitrogen 5 mg/dL (8-23); Calcium 8.5 mg/dL (8.5-10.5); Carbon Dioxide 28 mmol/L (22-29); Chloride 100 mmol/L (98-107); Globulin 3.1 g/dL (1.3-4.6); Glomerular Filtration Rate 164.4 mL/min (90-130); Glucose 86 mg/dL (65-115); Osmolality Calculated 283 mOsm/kg (285-295); Potassium 4.1 mmol/L (3.5-5.1); Sodium 138 mmol/L (136-145); Total Bilirubin 0.5 mg/dL (0.15-1.2); Total Protein 6.8 g/dL (6.6-8.7)
[2021-06-21 10:19] LABS: Troponin(5th) Baseline 7 ng/L (0-15)
[2021-06-21 10:22] VITALS: BP 123/78; PULSE 91; RESP 14; TEMP 37.5; O2SAT 96
--- NOTE | 2021-06-21 11:01 | ECG_ITS ---
[facility] Test Date: 2021-06-21 Pat Name: Fadi William Department: Room: Gender: Male Supervisor Maintenance: : 1950 Requested By: Wade Cisneros Order Number: [id number] Rasheeda MD: Schuyler Johnson M.D. Measurements Intervals Slemp Rate: 80 P: 53 NJ: 143 QRS: -34 QRSD: 98 T: 29 QT: 381 QTc: 441 Interpretive Statements SINUS RHYTHM MARKED LEFT AXIS DEVIATION [QRS AXIS < -30] Compared to ECG 06/18/2021 14:27:56 No significant changes Electronically Signed On 06-21-2021 17:32:03 CDT by Schuyler Johnson M.D. [id number]
[2021-06-21 11:23] VITALS: BP 142/86; PULSE 90; RESP 20; O2SAT 95
--- NOTE | 2021-06-21 11:56 | PC.PHAR ---
PT STATES HE TAKES CARE OF HIS OWN MEDICATIONS-PT STATES HE IS UNSURE IF HE IS STILL TAKING BUSPAR EXT MED HISTORY SHOWS LAST FILLED ON 04/20/21 90D/S-PT STATES HE DOESNT THINK HE IS TAKING DOXYCYCLINE HYCLATE 100MG DAILY ANYMORE EXT MED HISTORY SHOWS LAST FILLED ON 02/08/21 90D/S MARTHA STATES THE PT DOESNT HAVE ANY REFILLS LEFT ON THE RX
[2021-06-21 12:20] LABS: SARS Covid-2 Antigen Negative (Negative)
[2021-06-21 13:19] VITALS: BP 126/68; PULSE 102; RESP 20; O2SAT 93
--- NOTE | 2021-06-21 13:20 | PC.NURSE ---
patient denied any chest pain while stay still
[2021-06-21 14:32] LABS: Troponin 5 2HR 6.48 ng/L (0-15)
[2021-06-21 16:05] VITALS: BP 130/74; PULSE 90; RESP 18; O2SAT 93
[2021-06-22 14:17] LABS: Coronavirus Test Green County Not Detected
--- NOTE | 2021-06-22 18:00 | PC.NURSE ---
PT CALLED AND GIVEN THE RESULTS OF HIS COVID TEST
== END 2021-06-21 16:12 | disposition home or self-care (01) ==
PROVIDERS: Emergency Provider Family Medicine; PCP Family Medicine
DX: R07.89 Other chest pain (principal); Z79.82 Long term (current) use of aspirin; F17.210 Nicotine dependence, cigarettes, uncomplicated; Z20.822 Contact with and (suspected) exposure to COVID-19
CPT/HCPCS: 71045; 80053; 84484; 85025; 87426; 87635; 93005; 99284

== ENCOUNTER 2021-07-30 07:45 | Outpatient (CLI) | payer MEDICARE, BC, SELFPAY ==
[2021-07-30 08:01] VITALS: BMI 26.9
--- NOTE | 2021-07-30 08:20 | ECG_ITS ---
[facility] Test Date: 2021-07-30 Pat Name: Fadi William Department: Room: Gender: Male Human Resources Team Member: : 1950 Requested By: Andres Kohler Order Number: [id number] Vanessa MD: Shelia Melendez M.D. Interpretive Statements NAME OF STUDY: LEXISCAN SESTAMIBI STRESS TEST INDICATION: Chest Pain PROCEDURE: At the baseline, the blood pressure was 135/71 mmHg, oxygen saturation 90% with a heart rate of 77 bpm. The electrocardiogram showed normal sinus rhythm, left axis deviation. Baseline artifact. The Lexiscan was infused over a period of 20 seconds. A total of 0.4 milligrams of Lexiscan was infused. The stress phase was continued for a total of 5 minutes. Heart rate at the end of the stress phase was 91 bpm, oxygen saturation 93% with a blood pressure of 131/77 mmHg. The EKG at the peak infusion revealed sinus rhythm with no significant ST-T wave changes. Sestamibi was injected 20 seconds after the Lexiscan infusion. Blood pressure at the end of the recovery phase was 110/73 mmHg, oxygen saturation 93% with a heart rate of 96 beats per minute. CONCLUSION: 1. No significant EKG changes with the LexiScan infusion. 2. No LexiScan induced chest pain or cardiac arrhythmia. 3. Normal blood pressure and heart rate response. 4. Sestamibi/sestamibi perfusion scan pending; see separate report. Electronically Signed On 07-31-2021 15:08:26 CDT by Shelia Melednez M.D. [id number]
--- NOTE | 2021-07-30 08:21 | NMCV_ITS ---
NM fe perf SPECT r/s* [id number] Fadi William Age: 70 Gender: M : 1950 Exam Date: 07/30/2021 08:21 Ordering Phys: Andres Jenkins MD Technologist: CHARLI Truong Exam Location: [facility] Indications: CHEST PAIN STRESS TEST Please [facility] IMAGE PROTOCOL Rest/Stress 1 Lexiscan Day Radiopharmaceutical Dose (mCi) Administration Site Administered by Rest: Tc-99m 10.9 IV CHARLI Jacobs Sestamibi Stress:Tc-99m 32.5 IV CHARLI Jacobs Sestamibi Rest: 30-Jul-2021 60 Discovery 630 Stress: 30-Jul-2021 30 Discovery 630 0.4mg Lexiscan. Images obtained in supine and prone position. SPECT RESULTS Technical Quality: Excellent Raw Data Analysis: Normal Image Corrections: No attenuation or motion correction applied Summed Stress Score: 2 Summed Rest Score: 0 Summed Difference Score: 2 PERFUSION FINDINGS Small sized perfusion abnormality of mild severity of apical lateral wall on stress images. FUNCTIONAL RESULTS (calculated via Gated SPECT) Stress Image LV EF (%): 64 Stress EDV (mL):137 TID: 0.92 Stress ESV (mL):49 FUNCTIONAL FINDINGS: The left ventricle is normal in size. Transient Ischemia Dilatation of 0.92. There is normal left ventricular systolic function. The left ventricular ejection fraction is normal with a value of 64%. There is normal left ventricular wall thickening with no regional wall motion abnormality. Normal end diastolic and end systolic volumes. IMPRESSIONS 1. Small sized reversible perfusion abnormality of mild severity of apical lateral wall. 2. This may represent small area of ischemia in left anterior descending/circumflex artery territory. 3. Overall left ventricular systolic function is normal without regional wall motion abnormalities. 4. The left ventricular ejection fraction is normal with a value of 64%. 5. No prior similar studies to compare. Shelia Melendez MD (Electronically Signed) Final Date: 01 August 2021 17:05 S
[2021-07-30] MEDS: regadenoson 0.4 Mg/5 ml Syringe IVP (09:30)
[2021-07-30 09:56] VITALS: BP 110/73; PULSE 95
== END 2021-07-30 07:46 | disposition home or self-care (01) ==
LOC: CDL 07:47
PROVIDERS: PCP Family Medicine; Visit Provider Family Medicine
DX: R07.9 Chest pain, unspecified (principal)
CPT/HCPCS: 78452; 93017; A9500; J2785

== ENCOUNTER → 2021-08-30 10:02 | Outpatient (BNVA) | payer MEDICARE, BC, SELFPAY | PROVIDERS: PCP Family Medicine; Visit Provider Internal Medicine Cardiovascular Disease | DX: Z01.812 Encounter for preprocedural laboratory examination (principal); I25.9 Chronic ischemic heart disease, unspecified; R06.02 Shortness of breath; Z20.822 Contact with and (suspected) exposure to COVID-19 | CPT/HCPCS: 80048; 85025; 85610; 87635 ==

== ENCOUNTER 2021-09-06 07:27 | Day surgery (SDC) | payer MEDICARE, BC, SELFPAY ==
[2021-09-06] VITALS (16 sets, daily range): BP systolic 110–152; BP diastolic 48–94; PULSE 51–64; RESP 6–18; TEMP 36.6; O2SAT 88–93; BMI 27.1
--- NOTE | 2021-09-06 07:19 | XACV_ITS ---
Exam Room: 2 Ht: 188 cm Wt: 96 kg BSA: 2.25 m2 Gender: Male : 1950 Exam Priority: Routine Procedure(s): Procedure Description: Diagnostic procedure Procedure Description: Left Heart Catheterization Procedure Description: Left ventriculography Procedure Description: Coronary Angiography MARIOJulia DIGGS; Diagnostic Cath Status: Elective Diagnostic Findings * No disease noted in the Left Main, Left Anterior Descending, Right, or Circumflex coronary arteries. * Coronary angiography shows right dominance. Conclusions 1. No disease noted in the Left Main, Left Anterior Descending, Right, or Circumflex coronary arteries. 2. All santiago are normal. 3. Normal left ventricular systolic function. Ejection fraction of 65%. Recommendations * Continue current medical management and risk factor modification. LV EDP: 24 mmHg Ventriculography Ejection Fraction: 65.0 % Left Ventriculography Findings: * Normal left ventricle ejection fraction leading moderately elevated LVEDP. Pressures Phase:Rest AO : 109 / 68 ( 88 ) @ 8:33:00 AM 150 / 71 ( 101 ) @ 8:43:00 AM 150 / 70 ( 103 ) @ 8:43:00 AM LV : 146 / 0 / 23 @ 8:42:00 AM 149 / 0 / 24 @ 8:43:00 AM 147 / 0 / 24 @ 8:43:00 AM Valves Phase:DefaultPhase AV : 0.0 @ 9:50:51 AM AV Mean Gradient: 0.0 @ 9:50:51 AM Clinical Evaluation EBL: 5mL-10mL Procedural Details Procedure Consent Obtained. Admit Source: Out Patient. Identified patient by full name and date of as verbalized by the patient/guarantor. Does the consent match the physician's order: Yes. Accurate & Complete Informed Consent: Yes. Inpatient/Outpatient History & Physical on Chart: Yes. If H&P is completed, is and addenduem needed: No; If yes, is the addendum complete: N/A. Visualize and Verify Site with Patient/Guarantor: N/A. Relevant Radiology Images available: Yes. Pre-op teaching completed and patient verbalized understanding. The risks, benefits, and alternatives of sedation and/or procedure were discussed by physician. The patient agrees to continue. Procedure started. [facility] Clinical Fraility Score: 3: Managing Well. Engineering Supervisor Indications: Worsening Angina. Chest Pain Symptom Assessment: Atypical Angina. Cardiovascular Instability: No, if yes, Persistant Ischemic Symptoms. Correct patient, site and procedure confirmed by cath team. PERRLA. Strong, equal hand lithographic general worker bilaterally. Lungs clear x 5 lobes. IV Site on Arrival: 18 gauge in the left anticubital. Pre Procedural Pulses: bilateral dorsalis pedis was 3+. Pre Procedural Pulses: bilateral radial was 3+. Oxygen started at 2liters/min via nasal canula. right radial was prepped with chloroprep then draped in the usual sterile fashion. right groin was prepped with chloroprep then draped in the usual sterile fashion. Physician notified. Baseline sample Acquired. HR: 57 BPM. Physician arrived. Physician scrubbed in. Immediate Pre-Procedure Time Out. Correct Patient: Yes; Correct Procedure: Yes; Correct Site: Yes; Correct Patient Position: Yes; Correct Supplies: Yes; Dried Flammable Prep: Yes; Blood Products Available: n/a. Lidocaine 1% infiltrated to the right radial. Arterial access obtained. A 6 [place] catheter in over wire. Multiple views taken of left coronary artery. Catheter redirected to the RCA. Multiple views taken of right coronary artery. Catheter removed over the exchange wire. A 6 [place] citizen [place] catheter in over wire. EDP Sample taken: LV 146/-1,23; HR: 60 BPM; SpO2: 95%. LV gram performed in LOMELI @ 10 mL/second for a total of 30 mL. EDP Sample taken: LV 149/0,24; HR: 60 BPM; SpO2: 90%. Pullback taken: LV 147/0,24; AO 150/71(101); Mean: 0mmHg, Peak to Peak: 0mmHg, SEP: 18sec/min; HR: 59 BPM; SpO2: 94%. Catheter out. Post Procedure: Pulses reassessed and unchanged. Post Procedure: right radial pulse 3+. PERRLA. Strong, equal hand lithographic general worker bilaterally. No VTE prophylaxis required. Medication's Wasted: Lidocaine 1% = 16 mL. Medication's Wasted: Nitro = 49.8 mg. Medication's Wasted: Heparin = 1000 u. Total IV fluids: 39 mL. Post-op diagnosis: normal coronaries. Estimated blood loss: 5mL-10mL. Procedure completed. A TR Band was successful obtaining hemostatsis at the Right Radial artery insertion site. Vital chart was stopped. Access Site Site: Right Radial artery Sheath Size: 6 Fr Hemostasis Method: TR Band Hemostasis Success: Successful Procedure Medications Start: 9:17 AM Stop: 9:17 AM Medication: Versed Amount: 1 mg Route: I.V. Start: 9:18 AM Stop: 9:18 AM Medication: Fentanyl Amount: 50 mcg Route: I.V. Start: 9:25 AM Stop: 9:25 AM Medication: Versed Amount: 1 mg Route: I.V. Start: 9:25 AM Stop: 9:25 AM Medication: Fentanyl Amount: 25 mcg Route: I.V. Start: 9:27 AM Stop: 9:27 AM Medication: Nitrogylcerin Amount: 200 mcg Route: I.A. Start: 9:30 AM Stop: 9:30 AM Medication: Heparin Amount: 5000 units Route: I.V. I, the attending physician, have reviewed and verified all procedure medications. Yes, all medications given per verbal order History/Risk Factors Hypertension: Yes Dyslipidemia: No Peripheral Arterial Disease (PAD): No Myocardial Infarction ([place]): No Obesity: No Renal Disease: No Tobacco Use: Current/Recent(w/in 1 year) Prior Interventions PCI: No CABG: No Valve Surgery: No Report Signatures Finalized by Rosio Dumont MD on 09/19/2021 04:25 PM
[2021-09-06] MEDS: diphenhydrAMINE 50 mg Capsule PO (07:59)
--- NOTE | 2021-09-06 09:12 | W.PM.OPSUD ---
Surgery/Procedure H&P Update DATE OF PROCEDURE: September 06, 2021 DATE H&P PERFORMED: 09/10/20 H&P UPDATE INFORMATION: I have reviewed H&P completed within last 30 days, I have examined patient prior to procedure, No changes to prior documentation and Changes to prior documentation as noted here PREOP DIAGNOSIS: Chest pain despite of medicine optimization, abnormal stress test PRIMARY INDICATION FOR PROCEDURE: 71-year-old male past medical history significant for continuous tobacco abuse family history of heart problem hypertension despite of optimization of medicine continues to have chest pressure, he has been to emergency room stress test was performed which showed small area of reversibility but since patient continues to have worsening of symptoms Dr. Melendez his detective narcotics and vice referred him for left heart cath. Patient has been explained all risk benefit and alternative for the procedure. He understand risk for urgent emergent bypass surgery major minor bleed stroke hematoma vascular injury contrast-induced nephropathy leading to transient or permanent dialysis . PLANNED PROCEDURE: Operation Date: 09/06/21 08:30 Proposed Procedures p Cardiac Catheterization(Left) - Rosio Dumont MD PATIENT REASSESSED PRIOR TO SEDATION, WITH NO CHANGE NOTED: Yes PHYSICAL EXAM: alert, oriented x 3 and clear to auscultation bilaterally AIRWAY EVAL/ANESTHESIA PLAN: ASA II and Risks, benefits & alternatives of sedation and/or procedure discussed
== END 2021-09-06 13:31 | disposition home or self-care (01) ==
PROVIDERS: PCP Family Medicine; Visit Provider Internal Medicine Cardiovascular Disease
DX: R07.9 Chest pain, unspecified (principal); I10 Essential (primary) hypertension; F17.200 Nicotine dependence, unspecified, uncomplicated; Z82.49 Family history of ischemic heart disease and other diseases of the circulatory system
CPT/HCPCS: 36415; 93452; C1769; C1887; C1894; J1644; J2250; J3010; J3490; J7030; Q0163; Q9967

== ENCOUNTER → 2022-03-22 10:14 | Outpatient (BNVA) | payer MEDICARE, BC, SELFPAY | PROVIDERS: PCP Family Medicine; Visit Provider Internal Medicine Cardiovascular Disease | DX: I25.9 Chronic ischemic heart disease, unspecified (principal); R94.39 Abnormal result of other cardiovascular function study; F17.200 Nicotine dependence, unspecified, uncomplicated | CPT/HCPCS: 99213; 99214 ==

== ENCOUNTER 2022-12-28 11:29 | Outpatient (CLI) | payer MEDICARE, BC, SELFPAY ==
--- NOTE | 2022-12-28 12:05 | XRR_ITS ---
PROCEDURE INFORMATION: Exam: XR Left Foot Exam date and time: 12/28/2022 12:08 PM Age: 72 years old Clinical indication: Pain and injury or trauma; Other: Hit chair with leg/foot; Blunt trauma; Left; Injury date: A month ago; Injury details: Lt foot PT hit chair leg with foot 1 1/2 months ago; Additional info: Pain in left foot/pt injury to toe on L foot w/pain TECHNIQUE: Imaging protocol: Radiologic exam of the Left foot. Views: 3 or more views. COMPARISON: No relevant prior studies available. FINDINGS: Bones/joints: Alignment is normal. No acute fracture. Soft tissues: Visible soft tissues are unremarkable. XR/XR foot LT min 3V* [id number] IMPRESSION: No visible fracture.
== END 2022-12-28 11:30 | disposition home or self-care (01) ==
PROVIDERS: PCP Family Medicine; Visit Provider Family Medicine
DX: M79.672 Pain in left foot (principal)
CPT/HCPCS: 73630

== ENCOUNTER 2023-01-13 13:04 | Outpatient (CLI) | payer MEDICARE, BC, SELFPAY ==
--- NOTE | 2023-01-13 | CT_ITS ---
WS: [id number] LDCT LUNG CANCER SCREENING TECHNIQUE: Noncontrast CT of the chest with coronal and sagittal reformatted images. CLINICAL INFORMATION: NICOTINE DEPENDENCE COMPARISON: None. DLP: 82.61 mGy.cm DIvol: Mean CTDIvol: 1.60 (mGy) All CT scans at [facility] use at least one of these dose optimization techniques: automat ed exposure control; mA and/or kV adjustment per patient size (includes targeted exams where dose is matched to clinical indication); or iterative reconstruction. FINDINGS: Normal caliber thoracic aorta. Aortic calcification. Coronary calcification. Slightly prominent pretr acheal lymph node measuring 12 mm. Otherwise no mediastinal or hilar lymphadenopathy. Adrenal glands are normal. Cholecystectomy clips. Normal GE junction. No axillary lymphadenopathy angela ateral scattered reticular opacities. Subpleural honeycombing in both upper and lower lobe suspicious for UIP. Perihilar bronchiectasis. Mild thoracic curve. Hypertrophic changes thoracic spine. Cardiom egaly. Postoperative changes plate and screw fixation cervical spine. CT/CT lung screening [id number] IMPRESSION: Reticular opacities with subpleural honeycombing suspicious for UIP . Consider follow-up with HRCT and pulmonary consult LUNG-RADS: 2-Benign Appearance or Behavior FOLLOW UP: 12 Month: Continue annual screening with LDCT
== END 2023-01-13 13:05 | disposition home or self-care (01) ==
LOC: RAD 13:05
PROVIDERS: PCP Family Medicine; Visit Provider Family Medicine
DX: Z12.2 Encounter for screening for malignant neoplasm of respiratory organs (principal); Z87.891 Personal history of nicotine dependence
CPT/HCPCS: 71271

== ENCOUNTER 2023-01-31 10:37 | Outpatient (CLI) | payer MEDICARE, BC, SELFPAY ==
--- NOTE | 2023-01-31 10:43 | CT_ITS ---
WS: [id number] EXAMINATION: CT chest wo con [id number] ORDER DATE: 01/31/2023 10:44 AM COMPARISON: 01/13/2023 HISTORY: ABNORMAL LDCT, HRCT CONTRAST: None TOTAL EXAM DLP: [address] scans at [facility] use at least one of these dose optimization techniques: automated e xposure control; mA and/or kV adjustment per patient size (includes targeted exams where dose is matc hed to clinical indication); or iterative reconstruction. TECHNIQUE: Multiple axial images of the chest were obtained with 2-D imaging without the administration of contr ast. High-resolution imaging including supine and prone imaging. Evaluation of the mediastinum and gertrude for adenopathy and other pathology is significantly limited by the lack of intravascular contrast. FINDINGS: Lungs and Central Bronchi: bilateral scattered reticular opacities. Subpleural honeycombing in both u pper and lower lobe suspicious for UIP. Perihilar bronchiectasis. There is a 3 mm right upper lobe poon bpleural nodular opacity on axial image 15, 3 mm lateral right lower lobe nodule and to 3 mm subpleur al nodules in the left lower lobe on axial image 35, and 38 respectively of the supine lung windows. There is decreasing coalescing nodular opacity in the right middle lobe. Pleura: Mild bilateral generalized pleural thickening Vessels: Atherosclerotic changes in the aorta and coronary arteries with calcification. Heart: Cardiomegaly No pericardial effusion. Mediastinum and Gertrude: within normal limits. No evidence of significant hilar or mediastinal adenopath y. Chest Wall and Lower Neck: within normal limits. Upper Abdomen: Previous cholecystectomy Bones: Mild thoracic curve. Hypertrophic changes thoracic spine. Postsurgical fusion changes in the cervical spine. CT/CT chest wo con [id number] IMPRESSION: RETICULAR OPACITIES AND PLEURAL THICKENING WITH SUBPLEURAL HONEYCOMBING SUSPICI OUS FOR UIP. PULMONARY NODULES NOTED. RECOMMEND FLEISCHNER CRITERIA FOLLOW-U P
== END 2023-01-31 10:38 | disposition home or self-care (01) ==
LOC: RAD 10:39
PROVIDERS: PCP Family Medicine; Visit Provider Family Medicine
DX: R91.8 Other nonspecific abnormal finding of lung field (principal)
CPT/HCPCS: 71250

== ENCOUNTER → 2023-03-07 13:21 | Outpatient (BNVA) | payer MEDICARE, BC, SELFPAY | PROVIDERS: PCP Family Medicine; Visit Provider Internal Medicine Pulmonary Disease | DX: J84.9 Interstitial pulmonary disease, unspecified (principal); F17.200 Nicotine dependence, unspecified, uncomplicated; R91.8 Other nonspecific abnormal finding of lung field; Z57.2 Occupational exposure to dust; F10.21 Alcohol dependence, in remission | CPT/HCPCS: 99204 ==

== ENCOUNTER 2023-03-14 14:33 | Outpatient (CLI) | payer MEDICARE, BC, SELFPAY ==
[2023-03-14 15:34] LABS: Erythrocyte Sedimentation Rate 13 mm/hr (0-10)
[2023-03-14 15:35] LABS: Basophils % 0.1 %; Hematocrit 44.1 % (42.0-52.0); Hemoglobin 15.3 g/dL (11.7-16.6); Lymphocytes # 1.3 10^3/uL (0.8-4.8); Lymphocytes % 15.7 %; Mean Corpuscular HGB Conc 34.7 g/dL (30.0-36.0); Mean Corpuscular Hemoglobin 33.1 pg (28.0-34.0); Mean Corpuscular Volume 95.5 fl (80-94); Mean Platelet Volume 8.4 fL (7.4-10.4); Monocytes # 0.4 10^3/uL (0.2-0.9); Monocytes % 5.1 %; Neutrophils # 6.28 10^3/uL (1.8-7.7); Neutrophils % 78.4 %; Nucleated Red Blood Cells % 0 %; Platelet Count 181 10^3/cmm (130-400); Red Blood Count 4.62 10^6/uL (4.1-5.3); Red Cell Distribution Width 13.5 % (12.1-15.1)
[2023-03-14 18:07] LABS: LAB Peripheral Smear Sent for Review
[2023-03-16 13:43] LABS: Cyclic Citrullinated Peptide <16 UNITS
[2023-03-16 16:48] LABS: Anti-Double Strand DNA AB 1 IU/mL; Jo-1 Antibody <1.0 NEG AI (<1.0 NEG); SM/RNP Antibodies <1.0 NEG AI (<1.0 NEG); SS-B/LA IGG <1.0 NEG AI (<1.0 NEG); Scleroderma Ab(Scl-70) Ab <1.0 NEG AI (<1.0 NEG); Ss-A/Ro Igg <1.0 NEG AI (<1.0 NEG)
[2023-03-23 14:06] LABS: Pigeon Serum Ab NEGATIVE (NEGATIVE); Thermoactinomyces candidus Ab NEGATIVE (NEGATIVE)
== END 2023-03-14 14:34 | disposition home or self-care (01) ==
LOC: LAB 14:38
PROVIDERS: PCP Family Medicine; Visit Provider Internal Medicine Pulmonary Disease
DX: J84.9 Interstitial pulmonary disease, unspecified (principal)
CPT/HCPCS: 36415; 80503; 85025; 85651; 86140; 86200; 86225; 86235; 86331; 86431; 86606; 86609

== ENCOUNTER 2023-03-29 08:44 | Outpatient (CLI) | payer MEDICARE, BC, SELFPAY | END 2023-03-29 08:45 | disposition home or self-care (01) | LOC: RT 08:46 | PROVIDERS: PCP Family Medicine; Visit Provider Internal Medicine Pulmonary Disease | DX: J84.9 Interstitial pulmonary disease, unspecified (principal); Z72.0 Tobacco use | CPT/HCPCS: 94010; 94618; 94726; 94729 ==

== ENCOUNTER → 2023-04-25 11:51 | Outpatient (BNVA) | payer MEDICARE, BC, SELFPAY | PROVIDERS: PCP Family Medicine; Visit Provider Internal Medicine Pulmonary Disease | DX: J84.9 Interstitial pulmonary disease, unspecified (principal); R06.02 Shortness of breath; F17.210 Nicotine dependence, cigarettes, uncomplicated; F10.21 Alcohol dependence, in remission | CPT/HCPCS: 99214 ==

== ENCOUNTER 2023-05-30 19:27 | Emergency (ER) | payer MEDICARE, BC, SELFPAY ==
[2023-05-30] VITALS (9 sets, daily range): BP systolic 109–150; BP diastolic 65–93; PULSE 64–82; RESP 18–22; TEMP 36.7; O2SAT 81–95; BMI 26.9
--- NOTE | 2023-05-30 19:35 | ECG_ITS ---
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 Measurements Intervals [place] Rate: 67 P: 64 MN: 146 QRS: -30 QRSD: 109 T: 27 QT: 434 QTc: 459 Interpretive Statements SINUS RHYTHM BORDERLINE LEFT AXIS DEVIATION [QRS AXIS < -20] MINIMAL ST DEPRESSION [0.025+ mV ST DEPRESSION] Compared to ECG 06/21/2021 11:07:40 ST (T wave) deviation now present Electronically Signed On 05-30-2023 20:10:37 CDT by Shelia Melendez M.D. [id number]
--- NOTE | 2023-05-30 19:35 | XRR_ITS ---
PROCEDURE INFORMATION: Exam: XR Chest Exam date and time: 05/30/2023 7:43 PM Age: 72 years old Clinical indication: Pain; Chest pressure; Additional info: Cp TECHNIQUE: Imaging protocol: Radiologic exam of the chest. Views: 1 view. COMPARISON: CT chest [facility] [id number] 01/31/2023 10:48 AM FINDINGS: Lungs: Emphysematous changes. Patchy bilateral peripheral interstitial fibrotic changes with suspected parenchymal fibrosis, similar to prior exam. Pleural spaces: Unremarkable. No pleural effusion. No pneumothorax. Heart/Mediastinum: Unremarkable. No cardiomegaly. Bones/joints: Unremarkable. XR/XR chest 1V portable [id number] IMPRESSION: 1. Emphysematous changes. 2. Patchy bilateral peripheral interstitial fibrotic changes with suspected parenchymal fibrosis, similar to prior exam.
--- NOTE | 2023-05-30 19:41 | W.ED.CHESTPA ---
HPI - Chest Pain General: Chief Complaint: Chest Pain Stated Complaint: Chest Pains and Diah Time Seen by Provider: 05/30/23 19:33 Source: patient Mode of arrival: ambulatory History of Present Illness: 72-year-old male states has been having sharp chest pain throughout the day. He states the pain is in the center of his chest rates a 3 out of 10 he states that worse with arm movement exertion and with palpation. He denies any fever he denies any shortness of breath he denies any cough denies any vomiting or diarrhea. Associated symptoms: Deny abdominal pain, dyspnea, fever(s), nausea or vomiting Review of Systems Const: Denies: fever(s), chills, body aches or change in appetite ENMT: Denies: throat pain or dental pain Card: Reports: chest pain Resp: Denies: dyspnea GI: Denies: abdominal pain, nausea, vomiting or diarrhea : Denies: dysuria Musc: Denies: neck pain or back pain Skin/Breast: Denies: rash Neuro: Denies: headache(s) Psych: Denies: depression Alessandro/Lymph: Denies: easy bruising All/Imm: Denies: urticaria PFSH ED PFSH: Medical History Abnormal nuclear stress test Alcohol abuse BPH (benign prostatic hyperplasia) Depression Erectile dysfunction GERD (gastroesophageal reflux disease) Hemorrhoids Tobacco abuse Surgical History History of colonoscopy (~2015) History of fusion of cervical spine c3-c7 History of laparoscopic cholecystectomy History of repair of right rotator cuff S/P hemorrhoidectomy (09/23/20) Family History Denies family history of Anesthesia complication Bleeding disorder Social History Smoking and tobacco status: current every day smoker cigarettes Packs smoked per day: 1 Years cigarettes smoked: 55 [ Other cigarette details: Currently smoking less than 1 ppd] Second hand smoke exposure: Yes Alcohol intake: current Physical Exam Const: COMMON NORMALS: no acute distress, patient oriented x3 and healthy appearing HENMT: COMMON NORMALS: normocephalic and atraumatic HEAD & SCALP: normocephalic and atraumatic Eye: COMMON NORMALS: conjunctivae normal CONJUNCTIVA: Yes conjunctivae normal Neck/C-Spine: COMMON NORMALS: full ROM and supple Chest: COMMONS NORMALS: normal inspection of the chest OTHER: point tender in center of chest Resp: COMMON NORMALS: normal respiratory effort, No retractions, No use of accessory muscles and clear to auscultation bilaterally AUSCULTATION: clear to auscultation bilaterally Cardio: COMMON NORMALS: regular rate, regular rhythm and No murmurs present (Cardio) RATE: regular rate RHYTHM: regular rhythm GI: COMMON NORMALS: Normal to inspection, nondistended, normoactive bowel sounds present, Soft to palpation, non-tender and no masses PALPATION: Yes Soft to palpation Extremity: COMMON NORMALS: normal to inspection and full ROM Neuro: COMMON NORMALS: patient oriented x3, moves all extremities and no focal motor deficits Psych: COMMON NORMALS: mental status grossly normal, Normal thought process present and cooperative THOUGHT PROCESS: Normal thought process present Skin: COMMON NORMALS: no rashes or lesions noted and no wounds GENERAL SKIN EXAM: no rashes or lesions noted Course Vital Signs: Vital signs: Vital Signs Temperature 98.1 F 05/30/23 19:35 Pulse Rate 70 05/30/23 23:41 Respiratory Rate 22 H 05/30/23 23:41 Blood Pressure 109/65 05/30/23 23:41 Pulse Oximetry 94 05/30/23 23:41 Oxygen Delivery Me thod Nasal Cannula 05/30/23 22:55 Oxygen Flow Rate 3 05/30/23 22:55 MDM - Chest Pain Medical Decision Making Patient presents for chest pains atypical in nature likely chest wall pain as he is point tender on touch troponins are normal he is hypoxic likely chronic from his pulmonary fibrosis CTA showed no acute findings did place him on home oxygen he is to follow-up with PCP and return if worsening he understands agrees to plan. Medical Records I reviewed the patient's medical records. Lab Data I reviewed the patient's lab results. 05/30/23 19:43 05/30/23 19:43 Radiology Impressions Chest X-Ray 05/30/23 19:35 IMPRESSION: 1. Emphysematous changes. 2. Patchy bilateral peripheral interstitial fibrotic changes with suspected parenchymal fibrosis, similar to prior exam. Chest CTA 05/30/23 21:42 IMPRESSION: 1. Negative for pulmonary embolus. 2. Hepatic steatosis. 3. Emphysematous changes. 4. Left kidney cyst, negative for follow-up advised. 5. Cholecystectomy. 6. Scattered prominent subcentimeter short axis nonspecific mediastinal lymph nodes. 7. Cardiomegaly. 8. Coronary artery atherosclerotic calcifications. COMMENTS: 1. Consistent with the [employer]'s Incidental Findings Committee white paper (J Am To Radiol 2018): Any incidental renal lesion less than 1 cm or classified as too small to characterize, or any incidental cystic renal lesion characterized as simple-appearing, is likely benign. No follow-up imaging is recommended for these lesions per consensus recommendations based on imaging criteria. 2. In the absence of a history or active diagnosis of lung cancer, it is recommended that this patient with emphysema be evaluated for enrollment in a low dose CT lung cancer screening program. Laboratory Results WBC 10.6 10^3/uL (4.0-10.0) H 05/30/23 19:43 RBC 4.30 10^6/uL (4.1-5.3) 05/30/23 19:43 Hgb 14.6 g/dL (11.7-16.6) 05/30/23 19:43 Hct 42.2 % (42.0-52.0) 05/30/23 19:43 MCV 98.1 fl (80-94) H 05/30/23 19:43 MCH 34.0 pg (28.0-34.0) 05/30/23 19:43 MCHC 34.6 g/dL (30.0-36.0) 05/30/23 19:43 RDW 13.9 % (12.1-15.1) 05/30/23 19:43 Plt Count 152 10^3/cmm (130-400) 05/30/23 19:43 MPV 8.8 fL (7.4-10.4) 05/30/23 19:43 Neut % (Auto) 62.0 % 05/30/23 19:43 Lymph % (Auto) 28.3 % 05/30/23 19:43 [place] % (Auto) 7.8 % 05/30/23 19:43 Eos % (Auto) 1.0 % 05/30/23 19:43 Baso % (Auto) 0.5 % 05/30/23 19:43 Neut # (Auto) 6.54 10^3/uL (1.8-7.7) 05/30/23 19:43 Lymph # (Auto) 3.0 10^3/uL (0.8-4.8) 05/30/23 19:43 [place] # (Auto) 0.8 10^3/uL (0.2-0.9) 05/30/23 19:43 Eos # (Auto) 0.1 10^3/uL (0.0-0.8) 05/30/23 19:43 Baso # (Auto) 0.1 10^3/uL (0.0-0.1) 05/30/23 19:43 Nucleated RBC % (auto) 0 % 05/30/23 19:43 Nucleated RBCs # 0.0 /100WBC 05/30/23 19:43 PT 13.40 SECONDS (12.1-14.9) 05/30/23 19:43 INR 0.99 (0.8-1.2) 05/30/23 19:43 Specimen Type Arterial 05/30/23 22:15 ABG pH 7.47 (7.35-7.45) H 05/30/23 22:15 ABG pCO2 43.0 mmHg (35-45) 05/30/23 22:15 ABG pO2 73.4 mmHg (80.0-100.0) L 05/30/23 22:15 ABG HCO3 31.2 mmol/L (22-26) H 05/30/23 22:15 ABG Base Excess 6.7 mmol/L (-2.0-2.0) H 05/30/23 22:15 Jose Armando Test Pos 05/30/23 22:15 Hematocrit 43.3 % (42-52) 05/30/23 22:15 International Trade Specialist ID Anonymous 05/30/23 22:15 Sodium 133 mmol/L (136-145) L 05/30/23 19:43 Potassium 4.2 mmol/L (3.5-5.1) 05/30/23 19:43 Chloride 93 mmol/L (98-107) L 05/30/23 19:43 Carbon Dioxide 28 mmol/L (22-29) 05/30/23 19:43 Anion Gap 16.2 (5-19) 05/30/23 19:43 BUN 4 mg/dL (8-23) L 05/30/23 19:43 Creatinine 0.5 mg/dL (0.7-1.2) L 05/30/23 19:43 GFR Calculation Not Reportable 05/30/23 19:43 Glucose 88 mg/dL (65-115) 05/30/23 19:43 Calculated Osmolality 272 mOsm/kg (285-295) L 05/30/23 19:43 Calcium 8.7 mg/dL (8.5-10.5) 05/30/23 19:43 Total Bilirubin 1.0 mg/dL (0.15-1.2) 05/30/23 19:43 AST 78 U/L (0-40) H 05/30/23 19:43 ALT 54 U/L (0-41) H 05/30/23 19:43 Alkaline Phosphatase 107 U/L (40-130) 05/30/23 19:43 Troponin T Baseline 11 ng/L (0-15) 05/30/23 19:43 Troponin T 120 Minute 11.14 ng/L (0-15) 05/30/23 21:48 Delta Troponin T 0.14 ABS# (0-10) 05/30/23 21:48 NT-Pro-B Natriuret Pep 1015 pg/mL (0-125) H 05/30/23 19:43 Total Protein 6.6 g/dL (6.6-8.7) 05/30/23 19:43 Albumin 3.6 g/dL (3.5-5.2) 05/30/23 19:43 Globulin 3.0 g/dL (1.3-4.6) 05/30/23 19:43 Lipase 24 U/L (13-60) 05/30/23 19:43 EKG Data EKG 1: I personally reviewed and interpreted this EKG as follows: EKG interpretation date: 05/30/23 EKG interpretation time: 19:38 Interpretation: nsr hr [address] or twave abnormalities qrs 109 qtc 449 Discharge Plan Discharge Patient Disposition: Home Clinical Impression: Chest pain, Interstitial lung disease Condition: Stable Prescriptions: New Naprosyn 500 mg tablet 500 mg PO BID PRN (Reason: pain) Qty: 20 0RF prednisone 50 mg tablet 50 mg PO DAILY Qty: 5 0RF No Action esomeprazole magnesium 40 mg capsule,delayed release(DR/EC) 40 mg PO QAM zolpidem [Ambien] 10 mg tablet 10 mg PO .HS metoprolol tartrate 25 mg tablet See Rx Instructions .ROUTE .COMPLEX Qty: 180 3RF Dose Instruction: TAKE 1 TABLET BY MOUTH TWICE DAILY Rx Instructions: TAKE 1 TABLET BY MOUTH TWICE DAILY atorvastatin 40 mg tablet 40 mg PO DAILY sildenafil 100 mg tablet 100 mg PO BEDTIME PRN (Reason: Sexual Activity) trazodone 100 mg tablet 50 - 100 mg PO BEDTIME paroxetine HCl 30 mg tablet 30 mg PO BEDTIME buspirone 15 mg tablet 15 mg PO BID acamprosate 333 mg tablet,delayed release (DR/EC) 666 mg PO TID Vitamin B-12 2 tab PO DAILY Discharge Orders: Discharge ED (Routine); Ordered 05/30/23 Ordered By: Luis Dexter Other Ambulatory Orders: DME: Oxygen (Order) Location: None Selected Ordered By: Luis Dexter Referrals: Andres Jenkins MD [Primary Care Provider] - 1-3 days Discharge Diet: Advance as tolerated Discharge Activity: Resume usual activity Patient Instructions: Chest Pain (ED) Coding Level of Care Code ED Nailhead Puncher for Amada Gross
[2023-05-30 19:56] LABS: Basophils # 0.1 10^3/uL (0.0-0.1); Basophils % 0.5 %; Eosinophils # 0.1 10^3/uL (0.0-0.8); Hematocrit 42.2 % (42.0-52.0); Hemoglobin 14.6 g/dL (11.7-16.6); Lymphocytes % 28.3 %; Mean Corpuscular HGB Conc 34.6 g/dL (30.0-36.0); Mean Corpuscular Volume 98.1 fl (80-94); Mean Platelet Volume 8.8 fL (7.4-10.4); Monocytes # 0.8 10^3/uL (0.2-0.9); Monocytes % 7.8 %; Neutrophils # 6.54 10^3/uL (1.8-7.7); Nucleated Red Blood Cells % 0 %; Platelet Count 152 10^3/cmm (130-400); Red Cell Distribution Width 13.9 % (12.1-15.1); White Blood Count 10.6 10^3/uL (4.0-10.0)
[2023-05-30] MEDS: ondansetron 2 mg/ML SDV 2 mL 4 MG IVP (20:00)
[2023-05-30] MEDS: morphine 4 mg/mL SDV 1 mL IVP (20:02)
[2023-05-30 20:12] LABS: Alanine Aminotransferase 54 U/L (0-41); Albumin Level 3.6 g/dL (3.5-5.2); Alkaline Phosphatase 107 U/L (40-130); Anion Gap 16.2 (5-19); Aspartate Amino Transferase 78 U/L (0-40); Blood Urea Nitrogen 4 mg/dL (8-23); Calcium 8.7 mg/dL (8.5-10.5); Carbon Dioxide 28 mmol/L (22-29); Chloride 93 mmol/L (98-107); Glucose 88 mg/dL (65-115); Lipase 24 U/L (13-60); Osmolality Calculated 272 mOsm/kg (285-295); Potassium 4.2 mmol/L (3.5-5.1); Sodium 133 mmol/L (136-145); Total Protein 6.6 g/dL (6.6-8.7)
[2023-05-30 20:15] LABS: Creatinine Clr Calc Pharmacy 103.2061; Troponin(5th) Baseline 11 ng/L (0-15)
[2023-05-30 20:22] LABS: INR 0.99 (0.8-1.2)
[2023-05-30 20:39] LABS: NT Pro B Type Natriuretic Pept 1015 pg/mL (0-125)
--- NOTE | 2023-05-30 21:42 | ECG_ITS ---
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 Measurements Intervals [place] Rate: 68 P: 35 MI: 132 QRS: -14 QRSD: 106 T: 42 QT: 429 QTc: 458 Interpretive Statements SINUS RHYTHM MINIMAL ST DEPRESSION [0.025+ mV ST DEPRESSION] Compared to ECG 05/30/2023 19:38:18 No significant changes Electronically Signed On 05-31-2023 10:21:57 CDT by Shelia Melendez M.D. [id number]
--- NOTE | 2023-05-30 21:42 | CTR_ITS ---
PROCEDURE INFORMATION: Exam: CTA Chest With Contrast Exam date and time: 05/30/2023 10:08 PM Age: 72 years old Clinical indication: Shortness of breath; Additional info: SOB TECHNIQUE: Imaging protocol: Computed tomographic angiography of the chest with contrast. Exam focused on the arteries. 3D rendering (Not supervised by radiologist): MIP and/or 3D reconstructed images were created by the technologist. Radiation optimization: All CT scans at this facility use at least one of these dose optimization techniques: automated exposure control; mA and/or kV adjustment per patient size (includes targeted exams where dose is matched to clinical indication); or iterative reconstruction. Contrast material: OMNI 350; Contrast volume: 100 ml; Contrast route: INTRAVENOUS (IV); REPORTING DATA: Count of CT and Cardiac NM exams in prior 12 months: This patient has received 2 known CTs and 0 known cardiac nuclear medicine studies in the 12 months prior to the current study. COMPARISON: CT chest wo con [id number] 01/31/2023 10:48 AM RADIATION DOSE METRICS: Total DLP (mGy-cm): 485.59 FINDINGS: Pulmonary arteries: Normal. No pulmonary emboli. Aorta: Unremarkable. No aortic aneurysm. No aortic dissection. Lungs: Emphysematous changes. Pleural spaces: Unremarkable. No pneumothorax. No pleural effusion. Heart: Cardiomegaly. Coronary artery atherosclerotic calcifications. Lymph nodes: Scattered prominent subcentimeter short axis nonspecific mediastinal lymph nodes. Liver: Hepatic steatosis. Gallbladder and bile ducts: Cholecystectomy. Kidneys and ureters: Left kidney cyst, negative for follow-up advised. Bones/joints: Unremarkable. No acute fracture. Soft tissues: Unremarkable. CT/CT angio chest PE protcl [id number] IMPRESSION: 1. Negative for pulmonary embolus. 2. Hepatic steatosis. 3. Emphysematous changes. 4. Left kidney cyst, negative for follow-up advised. 5. Cholecystectomy. 6. Scattered prominent subcentimeter short axis nonspecific mediastinal lymph nodes. 7. Cardiomegaly. 8. Coronary artery atherosclerotic calcifications. COMMENTS: 1. Consistent with the [employer]'s Incidental Findings Committee white paper (J Am To Radiol 2018): Any incidental renal lesion less than 1 cm or classified as too small to characterize, or any incidental cystic renal lesion characterized as simple-appearing, is likely benign. No follow-up imaging is recommended for these lesions per consensus recommendations based on imaging criteria. 2. In the absence of a history or active diagnosis of lung cancer, it is recommended that this patient with emphysema be evaluated for enrollment in a low dose CT lung cancer screening program.
[2023-05-30] MEDS: FUROsemide 10 mg/mL SDV 4mL 40 MG IVP (21:51)
[2023-05-30] MEDS: acetaminophen 500 mg Tablet 1000 MG PO (21:51)
[2023-05-30] MEDS: albuterol 2.5 mg/3 mL Neb INHALATION (21:55)
[2023-05-30 22:07] LABS: ABG PH Result 7.47 (7.35-7.45); Arterial Blood Gas Hematocrit 43.3 % (42-52); Base Excess ABG 6.7 mmol/L (-2.0-2.0); Blood Gas Allen Test Pos; Blood Gas Sample Type Arterial; HCO3 ABG 31.2 mmol/L (22-26); PO2 ABG 73.4 mmHg (80.0-100.0)
[2023-05-30] MEDS: iohexol 350 mg/mL 500 mL Btl (per mL) IV (22:08)
[2023-05-30 22:15] LABS: Troponin 5 2HR 11.14 ng/L (0-15)
[2023-05-30 22:19] LABS: Troponin 5 2HR Delta 0.14 ABS# (0-10)
== END 2023-05-30 23:42 | disposition home or self-care (01) ==
PROVIDERS: Emergency Provider Emergency Medicine; PCP Family Medicine
DX: R07.9 Chest pain, unspecified (principal); J84.9 Interstitial pulmonary disease, unspecified; F17.210 Nicotine dependence, cigarettes, uncomplicated
CPT/HCPCS: 36415; 36600; 71045; 71275; 80053; 82803; 83690; 83880; 84484; 85025; 85610; 93005; 96374; 96375; 99285; J1940; J2270; J2405; J7613; Q9967

== ENCOUNTER 2023-06-13 09:07 | Oncology outpatient (recurring) (ONCR) | payer MEDICARE, BC, SELFPAY | END 2023-07-13 23:59 | disposition home or self-care (01) | PROVIDERS: PCP Family Medicine; Visit Provider Internal Medicine Medical Oncology | DX: R23.3 Spontaneous ecchymoses (principal) | CPT/HCPCS: 99213 ==

== ENCOUNTER → 2023-07-10 14:01 | Outpatient (BNVA) | payer MEDICARE, BC, SELFPAY | PROVIDERS: PCP Family Medicine; Visit Provider Internal Medicine Pulmonary Disease | DX: J84.9 Interstitial pulmonary disease, unspecified (principal); J98.4 Other disorders of lung; F17.210 Nicotine dependence, cigarettes, uncomplicated | CPT/HCPCS: 99214 ==

== ENCOUNTER 2023-08-14 13:51 | Outpatient (CLI) | payer MEDICARE, BC, SELFPAY ==
--- NOTE | 2023-08-14 14:06 | XR_ITS ---
WS: [id number] EXAMINATION: XR knee LT 3V* [id number] REASON FOR EXAM: L KNEE PAIN/FALL COMPARISON: None available. ORDER DATE: 08/14/2023 2:18 PM FINDINGS: There is no sign of any acute osseous or articular abnormality. There are no specific soft tissue abn ormalities. There is mild medial compartment narrowing. There is chondrocalcinosis involving both men isci. IMPRESSION: Chondrocalcinosis and mild osteoarthritis
== END 2023-08-14 13:52 | disposition home or self-care (01) ==
PROVIDERS: PCP Family Medicine; Visit Provider Family Medicine
DX: M11.262 Other chondrocalcinosis, left knee (principal); M17.12 Unilateral primary osteoarthritis, left knee
CPT/HCPCS: 73562

== ENCOUNTER 2023-09-12 11:30 | Outpatient (CLI) | payer MEDICARE, BC, SELFPAY ==
--- NOTE | 2023-09-12 11:40 | XRR_ITS ---
PROCEDURE INFORMATION: Exam: XR Right Clavicle, Complete Exam date and time: 09/12/2023 11:50 AM Age: 73 years old Clinical indication: Injury or trauma; Blunt trauma (contusions or hematomas); Shoulder; Right; Injury date: Fall last week; Additional info: Clavicle pain TECHNIQUE: Imaging protocol: Radiologic exam of the right clavicle. Complete exam. Views: Any number of views. COMPARISON: CR (CHEST, ) 05/30/2023 7:43 PM FINDINGS: Bones/joints: Widening of AC joint. Deformity of superolateral portion of humeral head likely related to remote shoulder dislocation. No fracture seen. Previous anterior fusion cervical spine. Soft tissues: Normal. XR/[place] [id number] IMPRESSION: Possible shoulder separation. No acute fracture is seen.
== END 2023-09-12 11:31 | disposition home or self-care (01) ==
LOC: RAD 11:32
PROVIDERS: PCP Family Medicine; Visit Provider Family Medicine
DX: M89.8X8 Other specified disorders of bone, other site (principal); W19.XXXA Unspecified fall, initial encounter
CPT/HCPCS: 73000

== ENCOUNTER → 2023-09-14 09:46 | Outpatient (BNVA) | payer MEDICARE, BC, SELFPAY | PROVIDERS: PCP Family Medicine; Visit Provider Physician Assistant | DX: T14.8XXA Other injury of unspecified body region, initial encounter (principal); M19.011 Primary osteoarthritis, right shoulder; S42.013A Anterior displaced fracture of sternal end of unspecified clavicle, initial encounter for closed fracture; X58.XXXA Exposure to other specified factors, initial encounter | CPT/HCPCS: 73000; 73030; 99204 ==

== ENCOUNTER 2023-09-25 11:11 | Emergency (ER) | payer MEDICARE, BC, SELFPAY ==
[2023-09-25 11:28] VITALS: BP 88/54; PULSE 77; RESP 16; TEMP 36.6; O2SAT 95; BMI 25.0
[2023-09-25 13:07] LABS: Basophils # 0.1 10^3/uL (0.0-0.1); Basophils % 0.6 %; Eosinophils # 0.2 10^3/uL (0.0-0.8); Hematocrit 40.2 % (37-53); Lymphocytes # 1.5 10^3/uL (0.8-4.8); Lymphocytes % 16.4 %; Mean Corpuscular HGB Conc 34.3 g/dL (30-55); Mean Corpuscular Hemoglobin 34.5 pg (27-33); Mean Corpuscular Volume 100.5 fl (82-101); Mean Platelet Volume 8.8 fL (7.4-10.4); Monocytes # 0.8 10^3/uL (0.2-0.9); Monocytes % 9.1 %; Neutrophils # 6.29 10^3/uL (1.8-7.7); Neutrophils % 71.2 %; Nucleated Red Blood Cells % 0 %; Platelet Count 176 10^3/cmm (157-399); Red Cell Distribution Width 12.8 % (12.1-15.1); White Blood Count 8.83 10^3/uL (3.29-11.43)
[2023-09-25 13:23] LABS: Alanine Aminotransferase 19 U/L (0-41); Albumin Level 3.4 g/dL (3.5-5.2); Alkaline Phosphatase 210 U/L (40-130); Anion Gap 11.6 (5-19); Aspartate Amino Transferase 30 U/L (0-40); Blood Urea Nitrogen 5 mg/dL (8-23); Calcium 9.2 mg/dL (8.5-10.5); Carbon Dioxide 30 mmol/L (22-29); Chloride 93 mmol/L (98-107); Globulin 3.8 g/dL (1.3-4.6); Glucose 91 mg/dL (65-115); Lipase 12 U/L (13-60); Osmolality Calculated 267 mOsm/kg (285-295); Potassium 4.6 mmol/L (3.5-5.1); Sodium 130 mmol/L (136-145); Total Bilirubin 0.7 mg/dL (0.15-1.2); Total Protein 7.2 g/dL (6.6-8.7)
--- NOTE | 2023-09-25 14:49 | CTR_ITS ---
PROCEDURE INFORMATION: Exam: CT Abdomen And Pelvis With Contrast Exam date and time: 09/25/2023 3:00 PM Age: 73 years old Clinical indication: Abdominal pain; Generalized; Additional info: Back/abd pain TECHNIQUE: Imaging protocol: Computed tomography of the abdomen and pelvis with contrast. Radiation optimization: All CT scans at this facility use at least one of these dose optimization techniques: automated exposure control; mA and/or kV adjustment per patient size (includes targeted exams where dose is matched to clinical indication); or iterative reconstruction. Contrast material: OMNI 350; Contrast volume: 100 ml; Contrast route: INTRAVENOUS (IV); REPORTING DATA: Count of CT and Cardiac NM exams in prior 12 months: This patient has received 3 known CTs and 0 known cardiac nuclear medicine studies in the 12 months prior to the current study. COMPARISON: 1. CT chest abdpel w/*[id number] 02/18/2021 6:[address] angio chest PE protcl [id number] 05/30/2023 10:08 PM RADIATION DOSE METRICS: Total DLP (mGy-cm): 649.5 FINDINGS: Lungs: Development of numerous subcentimeter bilateral lower lung pulmonary nodules. Pleural spaces: Small vkqa-segtmvg-jvhr-right pleural effusions with associated atelectasis. Liver: Subtle hepatic hypodensity measures approximately 3.6 x 3.5 x 4.0 cm on axial image 20 of series 4 and coronal image 21 of series 6 with mild surrounding intrahepatic biliary ductal dilatation. Gallbladder and bile ducts: Prior cholecystectomy without extrahepatic biliary ductal dilatation. Pancreas: Ill-defined irregular pancreatic tail hypodense lesion measures approximately 2.7 x 2.0 x 2.0 cm. Otherwise unremarkable. Spleen: Normal. Adrenal glands: Indeterminate 2.0 x 1.3 cm right adrenal mass. Normal left adrenal gland. Kidneys and ureters: Subcentimeter bilateral renal hypodensities are too small to characterize. These are statistically likely benign and require no dedicated imaging follow-up. Otherwise unremarkable. Stomach and bowel: Diffuse gastric thickening. 1.5 cm nodular soft tissue density along the greater gastric curvature serosal surface with thin tapered tail extending toward the pancreatic tail lesion, axial image 21 of series 4 and coronal image 20 of series 6. There is also thin linear hypodensity at the subjacent gastric wall on these images. No bowel dilatation to suggest obstruction. Appendix: No evidence of appendicitis. Intraperitoneal space: No free air or significant fluid collection. Mild peritoneal soft tissue nodularity with index 6 mm right posterolateral nodule on axial image 41 of series 2 and 4 mm lateral left nodule on axial image 39 of series 4 as well as mild upper abdominal nodularity such as 6 mm left anterolateral nodule on axial image 29 of series 4. Vasculature: Moderate systemic atherosclerotic calcification without abdominal aortic aneurysm. Lymph nodes: Mildly enlarged periportal lymph nodes with index portacaval node measuring 1.7 cm in the short axis. Urinary bladder: Urinary bladder is unremarkable. Reproductive: Mildly enlarged prostate measures 4.4 cm in transverse dimension. Bones/joints: Mild acute appearing anterior compression fracture of the T9 vertebral body. Developed aggressive expansile lytic lesions of the right L4 and L5 transverse processes with the adjacent soft tissue stranding. New 1 cm sclerotic focus at the left superior T11 vertebral body. Additional scattered small nonaggressive sclerotic foci within the leftward pelvis and femoral head are stable. Multilevel degenerative changes along the spine. Soft tissues: Unremarkable. CT/CT abdomen pelvis w con* [id number] IMPRESSION: 1. Constellation of findings compatible with metastatic disease with numerous small pulmonary nodules, multiple osseous lesions, and multiple peritoneal nodules as well as mild periportal lymphadenopathy. 2. Subtle hepatic hypodense mass measuring approximately 4 cm with mild intrahepatic biliary ductal dilatation concerning for malignancy. Recommend dedicated liver MRI without and with contrast. 3. Ill-defined pancreatic tail hypodense lesion measuring 2.7 cm concerning for malignancy. 4. Diffuse gastric thickening, nonspecific. Note of perigastric nodularity along the greater curvature serosal surface. 5. Mild acute anterior compression fracture of the T9 vertebral body. 6. Small jaod-livwxui-myxw-right pleural effusions with associated atelectasis. 7. Additional chronic and incidental findings, to include atherosclerosis and prostatomegaly. COMMENTS: Consistent with the [employer]'s Incidental Findings Committee white paper (J Am To Radiol 2018): Any incidental renal lesion less than 1 cm or classified as too small to characterize, or any incidental cystic renal lesion characterized as simple-appearing, is likely benign. No follow-up imaging is recommended for these lesions per consensus recommendations based on imaging criteria.
--- NOTE | 2023-09-25 14:52 | ED_ITS ---
HPI - Back Pain/Injury General: Chief Complaint: Back Pain/Injury Stated Complaint: back pain, lower abd pain Time Seen by Provider: 09/25/23 14:43 Source: patient Mode of arrival: ambulatory Limitations: no limitations History of Present Illness: 73-year-old male states he has been having bilateral flank and abdomen pain its been going on for 3 weeks. He states it is worse in his right flank pain things pains been sharp rates it as an 8 out of 10 he did have a fall as well states his pain had happened before that denies any dysuria denies any vomiting denies any diarrhea. Associated symptoms: Reports abdominal pain; Deny chills, fever(s), nausea or vomiting Review of Systems Const: Denies: fever(s), chills, body aches or change in appetite Eyes: Denies: blurry vision or eye discomfort ENMT: Denies: throat pain or dental pain Card: Denies: chest pain Resp: Denies: dyspnea GI: Reports: abdominal pain; Denies: nausea, vomiting or diarrhea Musc: Reports: back pain; Denies: neck pain Skin/Breast: Denies: rash Neuro: Denies: headache(s) PFSH ED PFSH: Medical History Abnormal nuclear stress test Alcohol abuse BPH (benign prostatic hyperplasia) Depression Erectile dysfunction GERD (gastroesophageal reflux disease) Hemorrhoids Tobacco abuse Surgical History History of colonoscopy (~2015) History of fusion of cervical spine c3-c7 History of laparoscopic cholecystectomy History of repair of right rotator cuff S/P hemorrhoidectomy (09/23/20) Family History Denies family history of Anesthesia complication Bleeding disorder Social History Smoking and tobacco/nicotine status: current every day tobacco/nicotine user cigarettes Packs smoked per day: 1 Years cigarettes smoked: 55 [ Other cigarette details: Currently smoking 1/4 PPD] Second hand smoke exposure: Yes Alcohol intake: current Physical Exam Const: COMMON NORMALS: no acute distress, patient oriented x3 and healthy appearing HENMT: COMMON NORMALS: normocephalic and atraumatic HEAD & SCALP: normocephalic and atraumatic Eye: COMMON NORMALS: Equal, round and reactive pupils present and EOMs intact bilaterally PUPIL: Yes Equal, round and reactive pupils present Neck/C-Spine: COMMON NORMALS: full ROM and supple Chest: COMMONS NORMALS: normal inspection of the chest and normal palpation of entire chest wall Resp: COMMON NORMALS: normal respiratory effort, No retractions, No use of accessory muscles and clear to auscultation bilaterally AUSCULTATION: clear to auscultation bilaterally Cardio: COMMON NORMALS: regular rate, regular rhythm and No murmurs present (Cardio) RATE: regular rate RHYTHM: regular rhythm GI: COMMON NORMALS: Normal to inspection, nondistended, normoactive bowel sounds present, Soft to palpation, non-tender and no masses PALPATION: Yes Soft to palpation Back/Pelvis: OTHER: right flank tenderness Extremity: COMMON NORMALS: normal to inspection and full ROM Neuro: COMMON NORMALS: patient oriented x3, moves all extremities and no focal motor deficits Psych: COMMON NORMALS: mental status grossly normal, Normal thought process present and cooperative THOUGHT PROCESS: Normal thought process present Skin: COMMON NORMALS: no rashes or lesions noted and no wounds GENERAL SKIN EXAM: no rashes or lesions noted Course Vital Signs: Vital signs: Vital Signs Temperature 97.9 F 09/25/23 11:28 Pulse Rate 77 09/25/23 11:28 Respiratory Rate 17 09/25/23 15:15 Blood Pressure 88/54 09/25/23 11:28 Pulse Oximetry 92 09/25/23 15:15 Oxygen Delivery Me thod Room Air 09/25/23 11:28 MDM - Back Pain/Injury Medical Decision Making Patient presents for back pain is going on for over a month is likely due to compression fracture T9 vertebral body along with CTA finding of likely pancreatic cancer with diffuse metastatic disease. I did inform him of this we will write him pain meds we will get him follow-up with oncology he understands and agrees to plan. Medical Records I reviewed the patient's medical records. Labs I reviewed the patient's lab results. 09/25/23 13:00 09/25/23 13:00 Radiology Impressions Abdomen/Pelvis CT 09/25/23 14:49 IMPRESSION: 1. Constellation of findings compatible with metastatic disease with numerous small pulmonary nodules, multiple osseous lesions, and multiple peritoneal nodules as well as mild periportal lymphadenopathy. 2. Subtle hepatic hypodense mass measuring approximately 4 cm with mild intrahepatic biliary ductal dilatation concerning for malignancy. Recommend dedicated liver MRI without and with contrast. 3. Ill-defined pancreatic tail hypodense lesion measuring 2.7 cm concerning for malignancy. 4. Diffuse gastric thickening, nonspecific. Note of perigastric nodularity along the greater curvature serosal surface. 5. Mild acute anterior compression fracture of the T9 vertebral body. 6. Small jyiq-[id number]-lxcw-right pleural effusions with associated atelectasis. 7. Additional chronic and incidental findings, to include atherosclerosis and prostatomegaly. COMMENTS: Consistent with the [employer]'s Incidental Findings Committee white paper (J Am To Radiol 2018): Any incidental renal lesion less than 1 cm or classified as too small to characterize, or any incidental cystic renal lesion characterized as simple-appearing, is likely benign. No follow-up imaging is recommended for these lesions per consensus recommendations based on imaging criteria. ADDENDUM: 09/25/23 1559 THIS REPORT CONTAINS FINDINGS THAT MAY BE CRITICAL TO PATIENT CARE. The findings were verbally communicated via telephone conference with LILIA MOCK at 3:56 PM ASSISTANT PRODUCT MANAGER on 09/25/2023. The findings were acknowledged and understood. Laboratory Results WBC 8.83 10^3/uL (3.29-11.43) 09/25/23 13:00 RBC 4.00 10^6/uL (3.85-5.65) 09/25/23 13:00 Hgb 13.80 g/dL (11.27-16.99) 09/25/23 13:00 Hct 40.2 % (37-53) 09/25/23 13:00 MCV 100.5 fl (82-101) 09/25/23 13:00 MCH 34.5 pg (27-33) H 09/25/23 13:00 MCHC 34.3 g/dL (30-55) 09/25/23 13:00 RDW 12.8 % (12.1-15.1) 09/25/23 13:00 Plt Count 176 10^3/cmm (157-399) 09/25/23 13:00 MPV 8.8 fL (7.4-10.4) 09/25/23 13:00 Neut % (Auto) 71.2 % 09/25/23 13:00 Lymph % (Auto) 16.4 % 09/25/23 13:00 Mcintosh % (Auto) 9.1 % 09/25/23 13:00 Eos % (Auto) 2.0 % 09/25/23 13:00 Baso % (Auto) 0.6 % 09/25/23 13:00 Neut # (Auto) 6.29 10^3/uL (1.8-7.7) 09/25/23 13:00 Lymph # (Auto) 1.5 10^3/uL (0.8-4.8) 09/25/23 13:00 Mcintosh # (Auto) 0.8 10^3/uL (0.2-0.9) 09/25/23 13:00 Eos # (Auto) 0.2 10^3/uL (0.0-0.8) 09/25/23 13:00 Baso # (Auto) 0.1 10^3/uL (0.0-0.1) 09/25/23 13:00 Nucleated RBC % (auto) 0 % 09/25/23 13:00 Nucleated RBCs # 0.0 /100WBC 09/25/23 13:00 Sodium 130 mmol/L (136-145) L 09/25/23 13:00 Potassium 4.6 mmol/L (3.5-5.1) 09/25/23 13:00 Chloride 93 mmol/L (98-107) L 09/25/23 13:00 Carbon Dioxide 30 mmol/L (22-29) H 09/25/23 13:00 Anion Gap 11.6 (5-19) 09/25/23 13:00 BUN 5 mg/dL (8-23) L 09/25/23 13:00 Creatinine 0.6 mg/dL (0.7-1.2) L 09/25/23 13:00 GFR Calculation Not Reportable 09/25/23 13:00 Glucose 91 mg/dL (65-115) 09/25/23 13:00 Calculated Osmolality 267 mOsm/kg (285-295) L 09/25/23 13:00 Calcium 9.2 mg/dL (8.5-10.5) 09/25/23 13:00 Total Bilirubin 0.7 mg/dL (0.15-1.2) 09/25/23 13:00 AST 30 U/L (0-40) 09/25/23 13:00 ALT 19 U/L (0-41) 09/25/23 13:00 Alkaline Phosphatase 210 U/L (40-130) H 09/25/23 13:00 Total Protein 7.2 g/dL (6.6-8.7) 09/25/23 13:00 Albumin 3.4 g/dL (3.5-5.2) L 09/25/23 13:00 Globulin 3.8 g/dL (1.3-4.6) 09/25/23 13:00 Lipase 12 U/L (13-60) L 09/25/23 13:00 All radiology interpretation(s) finalized by discharge Discharge Plan Discharge Patient Disposition: Home Clinical Impression: Back pain, Metastatic cancer Condition: Stable Prescriptions: New hydrocodone-acetaminophen 5-325 mg tablet 1 tab PO Q6H PRN (Reason: pain) Qty: 14 0RF No Action esomeprazole magnesium 40 mg capsule,delayed release(DR/EC) 40 mg PO QAM Anoro Ellipta 62.5-25 mcg/actuation blister with device 1 inh inhalation DAILY Qty: 60 6RF tramadol 50 mg tablet 50 mg PO Q6H PRN (Reason: Clavicle fracture ) Qty: 30 0RF Belsomra 10 mg tablet 10 mg PO BEDTIME atorvastatin 40 mg tablet 40 mg PO DAILY sildenafil 100 mg tablet 100 mg PO BEDTIME PRN (Reason: Sexual Activity) trazodone 100 mg tablet 50 - 100 mg PO BEDTIME paroxetine HCl 30 mg tablet 30 mg PO BEDTIME buspirone 15 mg tablet 15 mg PO BID acamprosate 333 mg tablet,delayed release (DR/EC) 666 mg PO TID naproxen [Naprosyn] 500 mg tablet 500 mg PO BID PRN (Reason: pain) Qty: 20 0RF cyclobenzaprine 10 mg tablet 10 mg PO TID PRN (Reason: Spasms) sulfamethoxazole-trimethoprim 800-160 mg tablet 1 tab PO BID metoprolol tartrate 25 mg tablet 25 mg PO BID Discharge Orders: Discharge ED (Routine); Ordered 09/25/23 Ordered By: Lilia Dexter Referrals: Andres Jenkins MD [Primary Care Provider] - 1-3 days Luis Fernando Gan MD [Hospitalist] - 1-3 days Discharge Diet: Advance as tolerated Discharge Activity: Resume usual activity Patient Instructions: Pancreatic Cancer (DC), Bone Metastasis (ED) Coding Level of Care Code ED Manager Embalmer Funeral Director for Amada Gross
[2023-09-25] MEDS: iohexol 350 mg/mL 500 mL Btl (per mL) IV (14:56)
[2023-09-25 15:15] VITALS: RESP 17; O2SAT 92
[2023-09-25] MEDS: ondansetron 2 mg/ML SDV 2 mL 4 MG IVP (15:15)
[2023-09-25] MEDS: morphine 4 mg/mL SDV 1 mL IVP (15:15)
--- NOTE | 2023-09-26 07:17 | DCPLANNER ---
Message sent to Oncology department. for follow up .
== END 2023-09-25 16:15 | disposition home or self-care (01) ==
PROVIDERS: Emergency Provider Emergency Medicine; PCP Family Medicine
DX: M54.9 Dorsalgia, unspecified (principal); C25.2 Malignant neoplasm of tail of pancreas; C79.9 Secondary malignant neoplasm of unspecified site; S22.070A Wedge compression fracture of T9-T10 vertebra, initial encounter for closed fracture; I70.90 Unspecified atherosclerosis; N40.0 Benign prostatic hyperplasia without lower urinary tract symptoms; F17.210 Nicotine dependence, cigarettes, uncomplicated; W19.XXXA Unspecified fall, initial encounter
CPT/HCPCS: 36415; 74177; 80053; 83690; 85025; 96374; 96375; 99285; J2270; J2405; Q9967

== ENCOUNTER 2023-10-01 10:07 | Emergency (ER) | payer MEDICARE, BC, SELFPAY ==
[2023-10-01 10:17] VITALS: BP 130/75; PULSE 74; RESP 16; TEMP 36.6; O2SAT 96; BMI 24.7
--- NOTE | 2023-10-01 10:31 | W.ED.BACK ---
HPI - Back Pain/Injury General: Chief Complaint: Back Pain/Injury Stated Complaint: back pains Time Seen by Provider: 10/01/23 10:24 History of Present Illness: 73-year-old male presents emergency department complaints of bilateral flank and abdominal pain he was initially seen on 09/25/2023 here in the emergency department and found to have a diagnosis of possibly pancreatic malignancy and an acute anterior compression fracture of the T9 vertebral body. He was provided pain medications and advised to follow-up with oncology and his primary care doctor. He presents today stating that he is out of the hydrocodone that he was provided by Dr. Dexter on that visit. He states to date he has not called his primary care provider or followed up with oncology. Patient states his pain currently is a 7 out of 10 and aching. Review of Systems General: Reports: 10 or more systems reviewed and unremarkable except in HPI and below Musc: Reports: back pain [facility] ED PFSH: Medical History Abnormal nuclear stress test Alcohol abuse BPH (benign prostatic hyperplasia) Depression Erectile dysfunction GERD (gastroesophageal reflux disease) Hemorrhoids Tobacco abuse Surgical History History of colonoscopy (~2015) History of fusion of cervical spine c3-c7 History of laparoscopic cholecystectomy History of repair of right rotator cuff S/P hemorrhoidectomy (09/23/20) Family History Denies family history of Anesthesia complication Bleeding disorder Social History Smoking and tobacco/nicotine status: current every day tobacco/nicotine user cigarettes Packs smoked per day: 1 Years cigarettes smoked: 55 [ Other cigarette details: Currently smoking 1/4 PPD] Second hand smoke exposure: Yes Alcohol intake: current Physical Exam Narrative: EXAM NARRATIVE: Constitutional: the patient appears well nourished and with normal development. Vital signs reviewed as documented. HENMT: Normocephalic, atraumatic. External ears with normal appearance without drainage. Nose without drainage, normal appearance. Mucus membranes moist. Neck is supple, No jugular venous distension, trachea is midline, no appreciable carotid bruits. No lymphadenopathy. No meningeal signs. Flexion, extension and lateral rotation is without pain. Eyes: Pupils are equal, round, reactive to light and accommodation. No scleral icterus. Extra-ocular movement are intact. Thorax is symmetrical and with equal rise and fall with respirations. Resp: Lungs are clear to auscultation. No wheezes, rales, crackles or ronchi at present. Cardio: Regular rate and rhythm. Positive S1, S2. No appreciable murmurs, rubs or gallops. GI: Abdominal exam reveals normal bowel sounds to all quadrants. No organomegaly. No obvious palpable masses noted. No hepatomegally appreciated. Soft, nontender to palpation. Extremity: Extremities are non-edematous and both femoral and pedal pulses are 2+ and equal bilaterally. Moves all extremities well, sensation in all extremities. Neuro: Alert and oriented x4, person, place, time and situation. Cranial nerves II through XII are grossly intact, there is no focal neurological deficits that I can appreciate at present. Motor strength in the upper and lower extremities are equal and bilateral 5/5. Psych: Cooperative, calm, normal thought process, appropriate judgment. Skin: No lesions, rashes. No gross abnormalities noted. Back: Symmetrical, no obvious deformity, No CVA tenderness Course Vital Signs: Vital signs: Vital Signs Temperature 97.8 F 10/01/23 10:17 Pulse Rate 74 10/01/23 10:17 Respiratory Rate 16 10/01/23 10:17 Blood Pressure 130/75 10/01/23 10:17 Pulse Oximetry 96 10/01/23 10:17 Oxygen Delivery Me thod Room Air 10/01/23 10:17 MDM - Back Pain/Injury Medical Decision Making Physical exam completed and reviewed, I reviewed the previous medical records and given the findings and his lack of follow-up I have extensively educated the patient on the importance of calling his primary care provider and being seen by oncology. I have provided him several resources with contact information so that he may choose an oncologist that best fits his needs. Medical Records I reviewed the patient's medical records. No radiology studies performed this visit Discharge Plan Discharge Patient Disposition: Home Clinical Impression: Back pain, Metastatic cancer Condition: Stable Prescriptions: New hydrocodone-acetaminophen 5-325 mg tablet 1 tab PO Q6H PRN (Reason: pain) Qty: 14 0RF No Action esomeprazole magnesium 40 mg capsule,delayed release(DR/EC) 40 mg PO QAM Anoro Ellipta 62.5-25 mcg/actuation blister with device 1 inh inhalation DAILY Qty: 60 6RF tramadol 50 mg tablet 50 mg PO Q6H PRN (Reason: Clavicle fracture ) Qty: 30 0RF Belsomra 10 mg tablet 10 mg PO BEDTIME atorvastatin 40 mg tablet 40 mg PO DAILY sildenafil 100 mg tablet 100 mg PO BEDTIME PRN (Reason: Sexual Activity) trazodone 100 mg tablet 50 - 100 mg PO BEDTIME paroxetine HCl 30 mg tablet 30 mg PO BEDTIME buspirone 15 mg tablet 15 mg PO BID acamprosate 333 mg tablet,delayed release (DR/EC) 666 mg PO TID naproxen [Naprosyn] 500 mg tablet 500 mg PO BID PRN (Reason: pain) Qty: 20 0RF cyclobenzaprine 10 mg tablet 10 mg PO TID PRN (Reason: Spasms) sulfamethoxazole-trimethoprim 800-160 mg tablet 1 tab PO BID metoprolol tartrate 25 mg tablet 25 mg PO BID hydrocodone-acetaminophen 5-325 mg tablet 1 tab PO Q6H PRN (Reason: pain) Qty: 14 0RF Discharge Orders: Discharge ED (Routine); Ordered 10/01/23 Ordered By: Jaylen Renee Referrals: Andres Jenkins MD [Primary Care Provider] - Luis Fernando Gan MD [Hospitalist] - (Call Dr. Gan to discuss additional treatment options.) Discharge Diet: Advance as tolerated Discharge Activity: Resume usual activity Patient Instructions: Opioid Safety, Pain Management Activity Restrictions/Additional Instructions: Activity Restrictions/Additional Instructions: Thank you for choosing [facility] for your healthcare needs today. Please realize that you were seen in the Emergency Department and that we are providing you with an emergency medical screening exam and this may not be complete and all inclusive of all the testing and or medical work-up that you may need to determine your ailment or severity of your illness. It is very important that you follow-up as instructed with your Primary care provider or Specialist for additional evaluation and to discuss your medical treatment plan. You may return to the Emergency Department should you have concerns or if your condition changes or worsens in any way. Coding Level of Care Code ED Geothermal Operations Engineer for Amada Gross
== END 2023-10-01 10:49 | disposition home or self-care (01) ==
PROVIDERS: Emergency Provider Internal Medicine; PCP Family Medicine
DX: M54.9 Dorsalgia, unspecified (principal); C79.9 Secondary malignant neoplasm of unspecified site; F17.210 Nicotine dependence, cigarettes, uncomplicated
CPT/HCPCS: 99283

== ENCOUNTER 2023-10-03 12:40 | Emergency (ER) | payer MEDICARE, BC, SELFPAY ==
[2023-10-03 12:53] VITALS: BP 90/61; PULSE 80; RESP 16; TEMP 36.7; O2SAT 97; BMI 24.7
--- NOTE | 2023-10-03 14:45 | ED_ITS ---
HPI - Abdominal Pain General: Chief Complaint: Abdominal Pain Stated Complaint: Back pain,dx pancreactic cancer Time Seen by Provider: 10/03/23 14:25 Source: patient Mode of arrival: ambulatory Limitations: no limitations History of Present Illness: Patient is a 73-year-old male who presents to ED today with complaint of back and abdominal pain. Patient states he was seen here recently for identical symptoms. He states symptoms have not changed at all. Prior to this visit he was originally seen in our emergency department on 09/25. He unfortunately had a CT scan that showed metastatic malignancy. Patient states he has not followed up with oncology. He was able to follow-up with his primary care provider Dr. Jenkins and believes that he has placed a referral to have a biopsy performed. P atient states he has been taking hydrocodone without much relief. CT scan from his original visit on 09/25 below: IMPRESSION: 1. ? Constellation of findings compatible with metastatic disease with numerous small pulmonary nodules, multiple osseous lesions, and multiple peritoneal nodules as well as mild periportal lymphadenopathy. 2. ? Subtle hepatic hypodense mass measuring approximately 4 cm with mild intrahepatic biliary ductal dilatation concerning for malignancy. Recommend dedicated liver MRI without and with contrast. 3. ? Ill-defined pancreatic tail hypodense lesion measuring 2.7 cm concerning for malignancy. 4. ? Diffuse gastric thickening, nonspecific. Note of perigastric nodularity along the greater curvature serosal surface. 5. ? Mild acute anterior compression fracture of the T9 vertebral body. 6. ? Small flhu-[id number]-[id number]-right pleural effusions with associated atelectasis. 7. ? Additional chronic and incidental findings, to include atherosclerosis and prostatomegaly. elicited complaint: abdominal pain Onset (ago): day(s) Pain Consistency: constant Location: Diffuse Severity: severe Radiation: none Migration to: no migration Exacerbating factors: nothing Relieving factors: nothing Associated Symptoms: Denies chills, diarrhea, dysuria, fever(s), hematochezia, melena, syncope and vomiting Review of Systems Const: Denies: fever(s), chills, body aches, fatigue or malaise Card: Denies: chest pain, palpitations, irregular heart rhythm, edema, swelling of feet/ankles, lightheadedness, syncope or pre-syncope Resp: Denies: dyspnea GI: Reports: abdominal pain; Denies: vomiting, diarrhea, hematochezia or melena : Denies: difficulty urinating or dysuria Musc: Reports: back pain; Denies: neck pain, extremity pain, extremity swelling, joint pain or joint swe lling Neuro: Denies: headache(s) or dizziness PFSH ED PFSH: Medical History (Updated 10/04/23 @ 11:58 by Luis Fernando Gan MD) Alcohol abuse BPH (benign prostatic hyperplasia) Degenerative joint disease of spine Depression Dyslipidemia Erectile dysfunction GERD (gastroesophageal reflux disease) History of hepatitis C Interstitial lung disease Tobacco abuse Surgical History History of colonoscopy (~2015) History of fusion of cervical spine c3-c7 History of laparoscopic cholecystectomy History of repair of right rotator cuff S/P hemorrhoidectomy (09/23/20) Family History Denies family history of Anesthesia complication Bleeding disorder Social History (Updated 10/04/23 @ 09:33 by Ward Rodriguez) Smoking and tobacco/nicotine status: current every day tobacco/nicotine user cigarettes Packs smoked per day: 0.25 Years cigarettes smoked: 55 Number of cigarettes per day: 6-10 [ Other cigarette details: Currently smoking 1/4 PPD] Second hand smoke exposure: Yes Alcohol intake: current Physical Exam Const: COMMON NORMALS: average body habitus, patient oriented x3, no limitations, alert and well nourished GENERAL APPEARANCE: cooperative ORIENTATION/CONSCIOUSNESS: Yes awake, Yes oriented to person, Yes oriented to place and Yes oriented to time HENMT: COMMON NORMALS: normocephalic and atraumatic HEAD & SCALP: normal to inspection, normocephalic and atraumatic Eye: COMMON NORMALS: no scleral icterus Resp: COMMON NORMALS: normal respiratory effort and clear to auscultation bilaterally AUSCULTATION: clear to auscultation bilaterally Cardio: COMMON NORMALS: regular rate and regular rhythm RATE: regular rate RHYTHM: regular rhythm GI: COMMON NORMALS: Normal to inspection, nondistended, normoactive bowel sounds present, Soft to palpation and no masses INSPECTION: Yes normal to inspection PALPATION: Yes Soft to palpation, Yes Tenderness to palpation present (GI) (diffusely), No Guarding due to palpation present (GI) and No Rigid due to palpation : COMMON NORMALS: Yes no CVA tenderness BLADDER/KIDNEY EXAM: Yes no CVA tenderness Back/Pelvis: COMMON NORMALS: no CVA tenderness THORACIC SPINE/UPPER BACK: Yes thoracic spinal tenderness, No paraspinal muscle tenderness and No paraspinal muscle spasm LUMBAR SPINE/LOWER BACK: No paraspinal muscle tenderness and No paraspinal muscle spasm Extremity: COMMON NORMALS: normal to inspection GENERAL: Yes normal exam except as noted Neuro: ANTON COMA SCALE: document GCS findings [place] coma scale eye opening: Spontaneous [place] coma scale verbal response: Orientated [place] coma scale motor response: Obey commands Anton coma scale total score: 15 COMMON NORMALS: patient oriented x3 SENSORIUM/ORIENTATION: Yes alert, Yes oriented to person, Yes oriented to place and Yes oriented to time Skin: COMMON NORMALS: no rashes or lesions noted GENERAL SKIN EXAM: no rashes or lesions noted Course Vital Signs: Vital signs: Vital Signs Temperature 98.0 F 10/03/23 12:53 Pulse Rate 71 10/03/23 17:00 Respiratory Rate 16 10/03/23 17:00 Blood Pressure 130/77 10/03/23 17:00 Pulse Oximetry 91 10/03/23 17:00 Oxygen Delivery Me thod Nasal Cannula 10/03/23 16:30 Oxygen Flow Rate 2 10/03/23 16:30 MDM - Abdominal Pain Medical Decision Making Patient here for pain related to his recent metastatic malignancy that was found earlier this month. He has yet to follow-up with oncology. He has followed up with his primary care provider. We were able to call over to the oncology office and get him an appointment tomorrow morning with Dr. Gan. He was originally taking hydrocodone but states this is no longer controlling his pain. He will be provided a prescription for oxycodone. Lab Data 10/03/23 15:15 10/03/23 16:17 Labs/Radiology: Radiology Impressions Chest X-Ray 10/03/23 15:19 IMPRESSION: Peripheral stringy opacities correlate with the CT findings and likely represent chronic interstitial fibrosis. Laboratory Results WBC 9.44 10^3/uL (3.29-11.43) 10/03/23 15:15 RBC 4.27 10^6/uL (3.85-5.65) 10/03/23 15:15 Hgb 14.80 g/dL (11.27-16.99) 10/03/23 15:15 Hct 42.6 % (37-53) 10/03/23 15:15 MCV 99.8 fl (82-101) 10/03/23 15:15 MCH 34.7 pg (27-33) H 10/03/23 15:15 MCHC 34.7 g/dL (30-55) 10/03/23 15:15 RDW 12.4 % (12.1-15.1) 10/03/23 15:15 Plt Count 211 10^3/cmm (157-399) 10/03/23 15:15 MPV 10.0 fL (7.4-10.4) 10/03/23 15:15 Neut % (Auto) 72.0 % 10/03/23 15:15 Lymph % (Auto) 15.7 % 10/03/23 15:15 [place] % (Auto) 9.2 % 10/03/23 15:15 Eos % (Auto) 2.2 % 10/03/23 15:15 Baso % (Auto) 0.4 % 10/03/23 15:15 Neut # (Auto) 6.79 10^3/uL (1.8-7.7) 10/03/23 15:15 Lymph # (Auto) 1.5 10^3/uL (0.8-4.8) 10/03/23 15:15 [place] # (Auto) 0.9 10^3/uL (0.2-0.9) 10/03/23 15:15 Eos # (Auto) 0.2 10^3/uL (0.0-0.8) 10/03/23 15:15 Baso # (Auto) 0.0 10^3/uL (0.0-0.1) 10/03/23 15:15 Nucleated RBC % (auto) 0 % 10/03/23 15:15 Nucleated RBCs # 0.0 /100WBC 10/03/23 15:15 Sodium 131 mmol/L (136-145) L 10/03/23 16:17 Potassium 4.5 mmol/L (3.5-5.1) 10/03/23 16:17 Chloride 96 mmol/L (98-107) L 10/03/23 16:17 Carbon Dioxide 27 mmol/L (22-29) 10/03/23 16:17 Anion Gap 12.5 (5-19) 10/03/23 16:17 BUN 8 mg/dL (8-23) 10/03/23 16:17 Creatinine 0.5 mg/dL (0.7-1.2) L 10/03/23 16:17 GFR Calculation Not Reportable 10/03/23 16:17 Glucose 100 mg/dL (65-115) 10/03/23 16:17 Calculated Osmolality 270 mOsm/kg (285-295) L 10/03/23 16:17 Calcium 8.5 mg/dL (8.5-10.5) 10/03/23 16:17 Total Bilirubin 0.8 mg/dL (0.15-1.2) 10/03/23 16:17 AST 28 U/L (0-40) 10/03/23 16:17 ALT 18 U/L (0-41) 10/03/23 16:17 Alkaline Phosphatase 207 U/L (40-130) H 10/03/23 16:17 Total Protein 6.8 g/dL (6.6-8.7) 10/03/23 16:17 Albumin 2.9 g/dL (3.5-5.2) L 10/03/23 16:17 Globulin 3.9 g/dL (1.3-4.6) 10/03/23 16:17 Lipase 19 U/L (13-60) 10/03/23 16:17 All radiology interpretation(s) finalized by discharge Discharge Plan Discharge Patient Disposition: Home Clinical Impression: Metastatic cancer Qualifiers: Area of secondary neoplastic involvement: unspecified site Qualified Code(s): C79.9 - Secondary malignant neoplasm of unspecified site Condition: Stable Prescriptions: Discontinued tramadol 50 mg tablet 50 mg PO Q6H PRN (Reason: Clavicle fracture ) Qty: 30 0RF hydrocodone-acetaminophen 5-325 mg tablet 1 tab PO Q6H PRN (Reason: pain) Qty: 14 0RF hydrocodone-acetaminophen 5-325 mg tablet 1 tab PO Q6H PRN (Reason: pain) Qty: 14 0RF No Action esomeprazole magnesium 40 mg capsule,delayed release(DR/EC) 40 mg PO QAM Anoro Ellipta 62.5-25 mcg/actuation blister with device 1 inh inhalation DAILY Qty: 60 6RF morphine 15 mg tablet 15 - 30 mg PO Q6H 15 Days Qty: 120 0RF tramadol 50 mg tablet 50 mg PO Q6H PRN Belsomra 10 mg tablet 10 mg PO BEDTIME atorvastatin 40 mg tablet 40 mg PO DAILY sildenafil 100 mg tablet 100 mg PO BEDTIME PRN (Reason: Sexual Activity) trazodone 100 mg tablet 50 - 100 mg PO BEDTIME paroxetine HCl 30 mg tablet 30 mg PO BEDTIME acamprosate 333 mg tablet,delayed release (DR/EC) 666 mg PO TID naproxen [Naprosyn] 500 mg tablet 500 mg PO BID PRN (Reason: pain) Qty: 20 0RF cyclobenzaprine 10 mg tablet 10 mg PO TID PRN (Reason: Spasms) sulfamethoxazole-trimethoprim 800-160 mg tablet 1 tab PO BID Discharge Orders: Discharge ED (Routine); Ordered 10/03/23 Ordered By: Tran Dobson Referrals: Andres Jenkins MD [Primary Care Provider] - Patient Instructions: Opioid Safety, Pain Management Activity Restrictions/Additional Instructions: As we discussed you have an appointment tomorrow with Dr. Gan at the oncology center at 9:00AM. He can then further determine next step/plan in your care. Coding Level of Care Code ED Split Leather Mosser for Amada Gross
--- NOTE | 2023-10-03 14:50 | PC.NURSE ---
RN ASSUMED CARE AT THIS TIME
[2023-10-03] MEDS: sodium chloride 0.9% 1,000 ML 999 ML IV (15:15)
--- NOTE | 2023-10-03 15:19 | XRR_ITS ---
PROCEDURE INFORMATION: Exam: XR Chest Exam date and time: 10/03/2023 3:26 PM Age: 73 years old Clinical indication: Shortness of breath; Patient HX: HX of pancreas cancer; Additional info: Low o2 TECHNIQUE: Imaging protocol: Radiologic exam of the chest. Views: 1 view. COMPARISON: CT angio chest PE protcl [id number] 05/30/2023 10:08 PM FINDINGS: Lungs: Peripheral stringy opacities correlate with the CT findings and likely represent chronic interstitial fibrosis. Pleural spaces: Unremarkable. No pleural effusion. No pneumothorax. Heart/Mediastinum: Unremarkable. No cardiomegaly. Bones/joints: Unremarkable. XR/XR chest 1V portable [id number] IMPRESSION: Peripheral stringy opacities correlate with the CT findings and likely represent chronic interstitial fibrosis.
[2023-10-03 15:22] VITALS: RESP 16; O2SAT 91
[2023-10-03] MEDS: morphine 4 mg/mL SDV 1 mL IVP (15:22)
[2023-10-03 15:25] VITALS: BP 129/73; PULSE 70; RESP 16; O2SAT 98
--- NOTE | 2023-10-03 15:29 | PC.NURSE ---
PATIENT UNABLE TO VOID AT THIS TIME
[2023-10-03 15:30] VITALS: BP 134/72; PULSE 70; RESP 16; O2SAT 97
[2023-10-03 15:31] LABS: Basophils % 0.4 %; Eosinophils # 0.2 10^3/uL (0.0-0.8); Eosinophils % 2.2 %; Hematocrit 42.6 % (37-53); Lymphocytes # 1.5 10^3/uL (0.8-4.8); Lymphocytes % 15.7 %; Mean Corpuscular HGB Conc 34.7 g/dL (30-55); Mean Corpuscular Hemoglobin 34.7 pg (27-33); Mean Corpuscular Volume 99.8 fl (82-101); Monocytes # 0.9 10^3/uL (0.2-0.9); Monocytes % 9.2 %; Neutrophils # 6.79 10^3/uL (1.8-7.7); Nucleated Red Blood Cells % 0 %; Platelet Count 211 10^3/cmm (157-399); Red Blood Count 4.27 10^6/uL (3.85-5.65); Red Cell Distribution Width 12.4 % (12.1-15.1); White Blood Count 9.44 10^3/uL (3.29-11.43)
--- NOTE | 2023-10-03 16:04 | DCPLANNER ---
oncology called back Patient has an appointment with Dr Gan 10/04/23 for 25. Notified patient of appointment time.
[2023-10-03 16:30] VITALS: BP 126/76; PULSE 73; RESP 17; O2SAT 97
[2023-10-03 16:44] LABS: Alanine Aminotransferase 18 U/L (0-41); Albumin Level 2.9 g/dL (3.5-5.2); Alkaline Phosphatase 207 U/L (40-130); Anion Gap 12.5 (5-19); Aspartate Amino Transferase 28 U/L (0-40); Blood Urea Nitrogen 8 mg/dL (8-23); Calcium 8.5 mg/dL (8.5-10.5); Carbon Dioxide 27 mmol/L (22-29); Chloride 96 mmol/L (98-107); Creatinine Clr Calc Pharmacy 98.1006; Globulin 3.9 g/dL (1.3-4.6); Glucose 100 mg/dL (65-115); Lipase 19 U/L (13-60); Osmolality Calculated 270 mOsm/kg (285-295); Potassium 4.5 mmol/L (3.5-5.1); Sodium 131 mmol/L (136-145); Total Bilirubin 0.8 mg/dL (0.15-1.2); Total Protein 6.8 g/dL (6.6-8.7)
[2023-10-03 17:00] VITALS: BP 130/77; PULSE 71; RESP 16; O2SAT 91
== END 2023-10-03 17:10 | disposition home or self-care (01) ==
PROVIDERS: Emergency Provider Physician Assistant; PCP Family Medicine
DX: C79.9 Secondary malignant neoplasm of unspecified site (principal); E78.5 Hyperlipidemia, unspecified; Z86.19 Personal history of other infectious and parasitic diseases; F17.210 Nicotine dependence, cigarettes, uncomplicated
CPT/HCPCS: 36415; 71045; 80053; 83690; 85025; 96361; 96374; 99284; J2270; J7030

== ENCOUNTER 2023-10-09 11:00 | Oncology outpatient (recurring) (ONCR) | payer MEDICARE, BC, SELFPAY ==
[2023-10-04] MEDS: morphine 4 mg/mL SDV 1 mL SUBCUT (10:56)
[2023-10-04 11:37] LABS: Carcinoembryonic Antigen 25.7 ng/mL (0.0-4.7)
[2023-10-04 13:50] LABS: Cancer Antigen 19 9 102.5 U/mL (0-35)
== END 2023-10-12 23:59 | disposition home or self-care (01) ==
PROVIDERS: Internal Medicine Medical Oncology; PCP Family Medicine; Visit Provider Internal Medicine Medical Oncology
DX: Z53.9 Procedure and treatment not carried out, unspecified reason (principal)
CPT/HCPCS: 82378; 86301; 96372; 99215; J2270